=== PATIENT | female | born 1980 | race Caucasian/White ===

== ENCOUNTER 2020-07-15 07:52 | Outpatient (REF) | payer OTHER, SELFPAY ==
[2020-07-15 08:31] LABS: COVID-19 Test Negative (Negative)
== END 2020-07-15 07:53 | disposition home or self-care (01) ==
LOC: HO.EMPCOV 07:52
PROVIDERS: Visit Provider Internal Medicine
DX: Z20.822 Contact with and (suspected) exposure to COVID-19 (principal)
CPT/HCPCS: 36415; 87635; C9803

== ENCOUNTER → 2020-12-12 10:56 | Outpatient (BNVA) | payer OTHER, SELFPAY | DX: Z20.822 Contact with and (suspected) exposure to COVID-19 (principal) | CPT/HCPCS: 36415; 87635 ==

== ENCOUNTER 2021-01-28 15:07 | Emergency (ER) | payer OTHER, SELFPAY ==
[2021-01-28 15:27] VITALS: BP 119/89; PULSE 70; RESP 16; O2SAT 98; BMI 45.6
[2021-01-28] MEDS: predniSONE 20 MG TABLET 60 MG PO (16:44)
[2021-01-28] MEDS: Ketorolac Tromethamine 15 MG/ML VIAL 30 MG IM (16:45)
--- NOTE | 2021-01-28 16:45 | ED_ITS ---
HPI - General Adult General Chief complaint: Back Pain/Injury Stated complaint: lower back pain Source: patient Mode of arrival: ambulatory Limitations: no limitations History of Present Illness HPI narrative: Patient presents to the ED for lower back pain exacerbation. patient states 5 days ago she washing her hand while bending down and when she straighted up she felt pain in lower back. patient states having pain fosince for the past 5 days that is worse on movement. patient denies any urinay/bowel incontinence, fever, chills, dysuria, hematuria, flank pain, vaginal bleeding, vaginal discharge, abdominal pain, or any recent trauma. patient states this has happened before and improves with musclecle relaxers. patient she had similiar episode 2 months ago and had normal xray at [facility]. patient de nies any pmh of IV drug use, HIV or HEp C Related Data Previous Rx's Medication Instructions Recorded cyclobenzaprine 10 mg tablet 10 mg PO TID PRN #18 tab 01/28/21 ketorolac 10 mg tablet 10 mg PO Q6H PRN 5 Days #20 tab 01/28/21 prednisone 20 mg tablet 40 mg PO DAILY 5 Days #10 tab 01/28/21 Allergies Allergy/AdvReac Type Severity Reaction Status Date / Time No Known Allergies Allergy Unverified 12/14/19 16:10 [No Known Allergies*] Review of Systems Review of Systems: Yes all other systems are reviewed and are negative Constitutional: Constitutional: Reports as per HPI and Reports no additional constitutional complaints Eyes: Eyes: Reports as per HPI and Reports no additional eye complaints ENT: Reports system reviewed and no additional complaints, except as documented and Reports as per HPI Cardiovascular: Cardiovascular: Reports as per HPI and Reports no additional cardiovascular complaints Respiratory: Respiratory: Reports as per HPI and Reports no additional respiratory complaints Gastrointestinal: Gastrointestinal: Reports as per HPI and Reports no additional gastrointestinal complaints Genitourinary: Genitourinary: Reports no additional female genitourinary complaints and Reports as per HPI Musculoskeletal: Musculoskeletal: Reports no additional musculoskeletal complaints, Reports as per HPI and Reports back pain (lower back pain) Neurologic: Reports system reviewed and no additional complaints, except as documented and Reports as per HPI Psychiatric: Psychiatric: Reports no additional psychiatric complaints and Reports as per HPI [facility] Social History Social History Advance Directives: No Advance Directives Information Provided: Yes Physical Exam Vital Signs: Vital Signs: Last Vital Signs Pulse 70 01/28/21 15:27 Resp 16 01/28/21 15:27 BP 119/89 01/28/21 15:27 Pulse Ox 98 01/28/21 15:27 Body Mass Index 45.6 Const: General: cooperative, healthy appearing, comfortable, no acute distress, well developed, alert, awake and Physically active Orientation/consciousness: patient oriented x3 HENMT: Head: Yes normal to inspection, Yes No palpable skull fracture present, Yes normocephalic, Yes atraumatic and No abrasion Eyes: General: appearance normal, both eyes and all related structures Neck: Neck: Yes normal visual inspection, Yes full ROM, Yes no lymphadenopathy, Yes no meningeal signs, Yes trachea midline, Yes supple, No anterior neck swelling and No tender Chest: Chest palpation & inspection: normal inspection of the chest and normal palpation of entire chest wall Resp: Effort & Inspection: normal respiratory effort and able to speak in complete sentences Auscultation: clear to auscultation bilaterally Cardio: Jugular venous distension: no JVD Heart sounds: S1 normal heart sound present and S2 normal heart sound present GI: Inspection: Yes normal to inspection and No abdominal wall ecchymosis Palpation (GI): Soft to palpation, not firm, nontender, no guarding and not rigid : General: No CVA tenderness and Yes no CVA tenderness Back/Spine/Pelvis: Other: Pain on range of motion of back. Back: no CVA tenderness, No CVA tenderness and back tenderness (mild muscular lumbar tenderness. ) Skin: General skin exam: no rashes or lesions noted and elasticity normal Neuro: General: patient oriented x3, no meningeal signs and CN's II-XI intact bilaterally Cranial nerves: Yes CN's II-XII intact bilaterally Extrem: General: Yes normal to inspection and Yes full ROM Psych: Appearance: grossly normal, well kempt and not disheveled Course Course Course Narrative: Patient will be given pain medication. Not suspecting pyelonephritis, kidney stones, or urinary tract infection. No new imaging indicated. He denies having trauma. Patient states similar presentation the past with normal x-ray. Not suspecting any spinal fracture or cauda equinus syndrome. Not suspecting epidural abscess. Reevaluation(s) Reevaluation #1: Patient discharged with pain meds and told to follow-up with primary care provider. Patient given days off. Time: 16:52 Medical Decision Making MDM Narrative Medical decision making narrative: Back pain. Muscle spasm Discharge Plan Discharge Clinical Impression: Sciatica Patient Disposition: Home, Self-Care Instructions: Sciatica (ED), Back Pain (ED) Additional Instructions: Please follow-up with primary care provider. Recommend MRI by PCP if pain does not improve. Return to the ED immediately for any urinary/bowel incontinence, fever, chills, nausea, vomiting, dysuria, hematuria, severe back pain, inability to ambulate, or any other concerning symptoms. Prescriptions: New ketorolac 10 mg tablet 10 mg PO Q6H PRN (Reason: pain) 5 Days Qty: 20 RF: 0 prednisone 20 mg tablet 40 mg PO DAILY 5 Days Qty: 10 RF: 0 cyclobenzaprine 10 mg tablet 10 mg PO TID PRN (Reason: muscle spasm) Qty: 18 RF: 0 Stand Alone Forms: Work/School Release Interventions: ED Discharge Assessment Last Done: 01/28/21 17:11 Discharge Date/Time: 01/28/21 17:12 Print Language: Greek
== END 2021-01-28 17:12 | disposition home or self-care (01) ==
PROVIDERS: Emergency Provider Emergency Medicine
DX: M54.42 Lumbago with sciatica, left side (principal); M54.41 Lumbago with sciatica, right side; Z79.899 Other long term (current) drug therapy
CPT/HCPCS: 96372; 99284; J1885

== ENCOUNTER 2021-11-24 17:37 | Emergency (ER) | payer OTHER, SELFPAY ==
--- NOTE | ~2021-11-24 | XR_ITS ---
EXAMINATION: PORTABLE CHEST 1 VIEW CLINICAL INFORMATION: sob . COMPARISON: 07/14/2018. TECHNIQUE: Portable frontal view of the chest was obtained. FINDINGS: The lungs are well expanded. No focal infiltrate, effusion, edema, or pneumothorax. Cardiac and mediastinal silhouettes are within normal limits for technique. No acute bony abnormality seen. XR/XR chest 1V IMPRESSION: No evidence of acute disease.
[2021-11-24 17:40] VITALS: BP 121/72; BP 131/72; PULSE 72; PULSE 78; RESP 20; TEMP 36.7; O2SAT 96; O2SAT 99; BMI 43.2
--- NOTE | 2021-11-24 17:43 | ED_ITS ---
HPI - SOB/Dyspnea General Chief Complaint: Dyspnea Stated Complaint: dyspnea Time Seen by Provider: 11/24/21 17:43 Source: patient Mode of arrival: EMS Limitations: no limitations History of Present Illness HPI Narrative: Patient OBs smoker brought by EMS for increased shortness of breath since early today use 4 puffs at home EMS gave her DuoNeb treatment. Patient clean her house with bleach earlier today and after that noticed increased shortness of breath patient does not have a diagnosis of asthma as such and been feeling sick for last 10 years off and on does have a dog at home no cats family history of asthma + no chest pain no palpitation no leg swelling patient denies any diagnosis of sleep apnea does not fall sick during daytime no apneic spell Related Data Previous Rx's Medication Instructions Recorded cyclobenzaprine 10 mg tablet 10 mg PO TID PRN muscle spasm #18 01/28/21 tabs ketorolac 10 mg tablet 10 mg PO Q6H PRN pain 5 days #20 01/28/21 tabs prednisone 20 mg tablet 40 mg PO DAILY 5 days #10 tabs 01/28/21 albuterol sulfate 2.5 mg/3 mL 2.5 mg (3 mL) inhalation Q4-6H PRN 11/24/21 (0.083 %) solution for nebulization shortness of breath or wheezing #180 mL albuterol sulfate 90 mcg/actuation 2 puff inhalation Q4-6H PRN 11/24/21 aerosol inhaler (ProAir HFA) shortness of breath or wheezing #8.5 grams nebulizers #1 ea 11/24/21 prednisone 20 mg tablet 40 mg PO DAILY #10 tabs 11/24/21 Allergies Allergy/AdvReac Type Severity Reaction Status Date / Time No Known Allergies Allergy Unverified 12/14/19 16:10 [No Known Allergies*] Review of Systems Review of Systems: Yes all other systems are reviewed and are negative PMFSH Past Medical History Medical History (Updated 11/25/21 @ 00:02 by Zoya Keene) Asthma Social History Social History Patient Tobacco Use Status: Current everyday Tobacco user Use of substances other than those prescribed or required for medical reasons: No Advance Directives: No Advance Directives Information Provided: No Patient : No Physical Exam Vital Signs: Vital Signs: Last Vital Signs Temp 98.7 F 11/24/21 18:26 Pulse 80 11/24/21 19:55 Resp 20 11/24/21 19:55 BP 102/53 L 11/24/21 19:55 Pulse Ox 98 11/24/21 19:55 O2 Del Method 11/24/21 19:55 BMI result Body Mass Index 43.2 Appearance: Alert. Oriented X3. Mild respiratory distress obese Eyes: No pallor or icterus ENT: Pharynx normal. Oral Mucosa moist Neck: Normal inspection. Neck supple. CVS: Normal heart rate and rhythm. Pulses normal. Respiratory: No respiratory distress. Equal air entry bilateral, no wheezing/rales/rhonchi Abdomen: Soft and nontender. Bowel sounds are present, no mass palpable, no CVA tenderness Skin: Skin warm and dry. Normal skin color. Normal skin turgor. Extremities: No lower extremity edema. No calf tenderness Neuro: Oriented X 3. No motor deficit. No sensory deficit.No cerebellar signs , cranial nerves II-XII intact MDM - SOB/Dyspnea MDM Narrative Medical decision making narrative: Patient improved after nebulizing treatment IV steroids and magnesium will discharge patient home on prednisone advised to avoid chemicals and use nebulizing machine Differential Diagnosis Differential diagnosis: Likely asthma with exacerbation Lab Data Attestation: I reviewed the patient's lab results. Result diagrams: 11/24/21 18:54 11/24/21 18:54 Labs: Lab Results 11/24/21 11/24/21 11/24/21 Range/Units 18:54 18:54 18:54 WBC 8.1 (4.8-10.8) X10*3/uL RBC 4.77 (4.20-5.50) X10*6/uL Hgb 14.5 (12.0-16.0) g/dl Hct 43.5 (37.0-47.0) % MCV 91.2 (80.0-98.0) fL MCH 30.4 (27.0-33.0) pg MCHC 33.3 (31.0-35.0) g/dl RDW 12.9 (11.0-16.0) % Plt Count 268 (160-400) X10*3/uL MPV 10.7 (9.4-12.3) fL Immature Gran % (Auto) 0.4 (0.0-0.4) % Neut % (Auto) 80.6 H (45-73) % Lymph % (Auto) 15.0 L (20-40) % [place] % (Auto) 2.8 (2-11) % Eos % (Auto) 1.0 (0-4) % Baso % (Auto) 0.2 (0-2) % Lymph # (Auto) 1.2 (1.2-4.9) X10*3/uL [place] # (Auto) 0.2 (0.1-1.2) X10*3/uL Eos # (Auto) 0.1 (0.0-0.4) X10*3/uL Baso # (Auto) 0.0 (0.0-0.2) X10*3/uL Abs Immat Gran (auto) 0.03 (0.00-0.03) X10*3/uL Absolute Neuts (auto) 6.5 (2.0-8.3) x10*3/uL Absolute Nucleated RBC 0.000 (0.0-0.012) X10*3/uL Nucleated RBC % (auto) 0.0 (0.0-0.2) /100WBC Sodium 142 (135-145) mmol/L Potassium 4.2 (3.3-5.1) mmol/L Chloride 108 (96-108) mmol/L Carbon Dioxide 25 (22-29) mmol/L Anion Gap 13 (12-20) BUN 11 (9-16) mg/dL Creatinine 0.78 (0.5-1.4) mg/dL Estim Creat Clear Calc 124.4 Estimated GFR > 60 Random Glucose 149 H (60-115) mg/dL Calcium 8.7 (8.4-10.2) mg/dL Total Bilirubin 0.6 (0.0-1.0) mg/dL AST 17 (5-31) U/L ALT 19 (0-31) U/L Alkaline Phosphatase 104 (39-117) U/L Troponin I High Sens (<3.5-17.0) ng/L B-Natriuretic Peptide (<100) pg/mL Total Protein 6.9 (6.5-8.0) g/dL Albumin 3.9 (3.5-5.0) g/dL COVID-19 ([place]ITISH) Negative (Negative) COVID-19 Clin Com See Note 11/24/21 11/24/21 Range/Units 18:54 18:54 WBC (4.8-10.8) X10*3/uL RBC (4.20-5.50) X10*6/uL Hgb (12.0-16.0) g/dl Hct (37.0-47.0) % MCV (80.0-98.0) fL MCH (27.0-33.0) pg MCHC (31.0-35.0) g/dl RDW (11.0-16.0) % Plt Count (160-400) X10*3/uL MPV (9.4-12.3) fL Immature Gran % (Auto) (0.0-0.4) % Neut % (Auto) (45-73) % Lymph % (Auto) (20-40) % [place] % (Auto) (2-11) % Eos % (Auto) (0-4) % Baso % (Auto) (0-2) % Lymph # (Auto) (1.2-4.9) X10*3/uL [place] # (Auto) (0.1-1.2) X10*3/uL Eos # (Auto) (0.0-0.4) X10*3/uL Baso # (Auto) (0.0-0.2) X10*3/uL Abs Immat Gran (auto) (0.00-0.03) X10*3/uL Absolute Neuts (auto) (2.0-8.3) x10*3/uL Absolute Nucleated RBC (0.0-0.012) X10*3/uL Nucleated RBC % (auto) (0.0-0.2) /100WBC Sodium (135-145) mmol/L Potassium (3.3-5.1) mmol/L Chloride (96-108) mmol/L Carbon Dioxide (22-29) mmol/L Anion Gap (12-20) BUN (9-16) mg/dL Creatinine (0.5-1.4) mg/dL Estim Creat Clear Calc Estimated GFR Random Glucose (60-115) mg/dL Calcium (8.4-10.2) mg/dL Total Bilirubin (0.0-1.0) mg/dL AST (5-31) U/L ALT (0-31) U/L Alkaline Phosphatase (39-117) U/L Troponin I High Sens 5.3 (<3.5-17.0) ng/L B-Natriuretic Peptide 27 (<100) pg/mL Total Protein (6.5-8.0) g/dL Albumin (3.5-5.0) g/dL COVID-19 ([place]ITISH) (Negative) COVID-19 Clin Com Discharge Plan Discharge Clinical Impression: Asthma with exacerbation Patient Disposition: Home, Self-Care Instructions: Asthma (ED) Additional Instructions: Use nebulizing treatment every 4-6 hours as advised Prednisone as prescribed Follow-up with PCP Prescriptions: New prednisone 20 mg tablet 40 mg PO DAILY Qty: 10 0RF albuterol sulfate [ProAir HFA] 90 mcg/actuation HFA aerosol inhaler 2 puff inhalation Q4-6H PRN (Reason: shortness of breath or wheezing) Qty: 8.5 0RF albuterol sulfate 2.5 mg /3 mL (0.083 %) solution for nebulization 2.5 mg inhalation Q4-6H PRN (Reason: shortness of breath or wheezing) Qty: 180 0RF (DME) nebulizers Misc See Rx Instructions .Route Qty: 1 0RF Rx Instructions: As directed No Action ketorolac 10 mg tablet 10 mg PO Q6H PRN (Reason: pain) 5 Days Qty: 20 0RF Rx Instructions: patient received IM toradol 30mg in the ED. prednisone 20 mg tablet 40 mg PO DAILY 5 Days Qty: 10 0RF cyclobenzaprine 10 mg tablet 10 mg PO TID PRN (Reason: muscle spasm) Qty: 18 0RF Rx Instructions: side effect is drowsiness. Do not take at work or while driving. Referrals: Osiris Vasquez MD [Physician] - 2 weeks Interventions: ED Discharge Assessment Last Done: 11/24/21 20:40 Discharge Date/Time: 11/24/21 20:41
--- NOTE | 2021-11-24 17:46 | ECG_ITS ---
Test Reason : DYSPENA Blood Pressure : / mmHG Vent. Rate : 080 BPM Atrial Rate : 080 BPM P-R Int : 128 ms QRS Dur : 090 ms QT Int : 388 ms P-R-T Axes : 008 -14 023 degrees QTc Int : 447 ms Normal sinus rhythm Normal ECG When compared with ECG of 14-JUL-2018 16:18, Heart rate has decreased Referred By: Carlo Corona Electronically Signed By:LORI ISSA
[2021-11-24 17:47] VITALS: BP 131/72; PULSE 77; RESP 14; O2SAT 99
[2021-11-24] MEDS: Magnesium Sulfate/H2O 2 GM/50 ML PIGGYBACK IV (18:15)
[2021-11-24] MEDS: methylPREDNISolone Sod Succ 125 MG/2 ML VIAL IVPUSH (18:15)
[2021-11-24 18:26] VITALS: BP 119/69; PULSE 72; RESP 16; TEMP 37.1; O2SAT 98
[2021-11-24 19:01] LABS: MANUAL DIFF FLAG NO
[2021-11-24 19:02] LABS: Basophils Percent Auto 0.2 % (0-2); Eosinophils Absolute Auto 0.1 X10*3/uL (0.0-0.4); Hematocrit 43.5 % (37.0-47.0); Hemoglobin 14.5 g/dl (12.0-16.0); Imm Gran Abs Auto 0.03 X10*3/uL (0.00-0.03); Imm Gran Pct Auto 0.4 % (0.0-0.4); Lymphocytes Absolute Auto 1.2 X10*3/uL (1.2-4.9); Mean Corpuscular HGB Conc 33.3 g/dl (31.0-35.0); Mean Corpuscular Hemoglobin 30.4 pg (27.0-33.0); Mean Corpuscular Volume 91.2 fL (80.0-98.0); Mean Platelet Volume 10.7 fL (9.4-12.3); Monocytes Absolute Auto 0.2 X10*3/uL (0.1-1.2); Monocytes Percent Auto 2.8 % (2-11); Neutrophils Absolute Auto 6.5 x10*3/uL (2.0-8.3); Neutrophils Percent Auto 80.6 % (45-73); Platelet Count 268 X10*3/uL (160-400); Red Blood Count 4.77 X10*6/uL (4.20-5.50); Red Cell Distribution Width 12.9 % (11.0-16.0); White Blood Count 8.1 X10*3/uL (4.8-10.8)
[2021-11-24 19:18] LABS: Alanine Aminotransferase 19 U/L (0-31); Albumin Level 3.9 g/dL (3.5-5.0); Alkaline Phosphatase 104 U/L (39-117); Anion Gap 13 (12-20); Aspartate Amino Transferase 17 U/L (5-31); Bilirubin Total 0.6 mg/dL (0.0-1.0); Blood Urea Nitrogen 11 mg/dL (9-16); COVID-19 Test Negative (Negative); Calcium 8.7 mg/dL (8.4-10.2); Carbon Dioxide 25 mmol/L (22-29); Chloride 108 mmol/L (96-108); Creatinine Clr Calc Pharmacy 124.4; Estimated Glomerular Filt Rate > 60; Glucose Random 149 mg/dL (60-115); IDNOW Serial# 16C4AD1C; Potassium 4.2 mmol/L (3.3-5.1); Sodium 142 mmol/L (135-145); Total Protein 6.9 g/dL (6.5-8.0)
[2021-11-24 19:21] LABS: B Type Natriuretic Peptide 27 pg/mL (<100)
[2021-11-24 19:22] LABS: Troponin-I High Sensitivity 5.3 ng/L (<3.5-17.0)
[2021-11-24] MEDS: Albuterol Sulfate (0.083%) 2.5 MG/3 ML VIAL.NEB 5 MG INHALE (19:25)
[2021-11-24 19:26] VITALS: PULSE 74; RESP 16; O2SAT 96
[2021-11-24 19:55] VITALS: BP 102/53; PULSE 80; RESP 20; O2SAT 98
== END 2021-11-24 20:41 | disposition home or self-care (01) ==
PROVIDERS: Emergency Provider Internal Medicine
DX: J45.901 Unspecified asthma with (acute) exacerbation (principal); Z20.822 Contact with and (suspected) exposure to COVID-19; R06.02 Shortness of breath; F17.200 Nicotine dependence, unspecified, uncomplicated
CPT/HCPCS: 36415; 71045; 80053; 83880; 84484; 85025; 87635; 93005; 94640; 96365; 96375; 99284; 99285; J2930; J3475

== ENCOUNTER 2022-03-02 11:18 | Emergency (ER) | payer OTHER, SELFPAY ==
[2022-03-02 11:22] VITALS: BP 147/83; PULSE 78; RESP 20; TEMP 36.7; O2SAT 96; BMI 43.2
--- NOTE | 2022-03-02 11:24 | ED.URI ---
HPI - URI/Sore Throat General Chief Complaint: General Medical Stated Complaint: asthma Source: patient Mode of arrival: ambulatory History of Present Illness HPI Narrative: 42-year-old female with history of asthma presents with positive COVID-19 test home and presents with persistent cough as well as fevers, body aches. Related Data Previous Rx's Medication Instructions Recorded cyclobenzaprine 10 mg tablet 10 mg PO TID PRN muscle spasm #18 01/28/21 tabs ketorolac 10 mg tablet 10 mg PO Q6H PRN pain 5 days #20 01/28/21 tabs prednisone 20 mg tablet 40 mg PO DAILY 5 days #10 tabs 01/28/21 albuterol sulfate 2.5 mg/3 mL 2.5 mg (3 mL) inhalation Q4-6H PRN 11/24/21 (0.083 %) solution for nebulization shortness of breath or wheezing #180 mL albuterol sulfate 90 mcg/actuation 2 puff inhalation Q4-6H PRN 11/24/21 aerosol inhaler (ProAir HFA) shortness of breath or wheezing #8.5 grams nebulizers #1 ea 11/24/21 prednisone 20 mg tablet 40 mg PO DAILY #10 tabs 11/24/21 benzonatate 200 mg capsule 200 mg PO TID PRN cough #14 caps 03/02/22 prednisone 50 mg tablet 50 mg PO DAILY 4 days #4 tabs 03/02/22 Allergies Allergy/AdvReac Type Severity Reaction Status Date / Time No Known Allergies Allergy Verified 03/02/22 11:27 [No Known Allergies*] Review of Systems Review of Systems: Pertinent positives and negatives as stated in HPI 10 point review of systems is otherwise negative. PMFSH Past Medical History Medical History (Updated 03/02/22 @ 11:36 by Sharyn Olmos MD) Asthma Social History Social History Patient Tobacco Use Status: Current everyday Tobacco user Physical Exam Vital Signs: Vital Signs: VITAL SIGNS: Reviewed. GENERAL: Well developed, well nourished, in no acute distress. HEAD: Normocephalic/atraumatic EYES: PERRLA, EOMI EARS: Ext canals without abnormality NOSE: Nares patent bilateral OROPHARYNX: no oral lesions noted, posterior pharynx clear and non-erythematous without noted tonsillar enlargement/erythema/exudates NECK: Supple, no adenopathy LUNGS: Normal breath sounds, scattered rhonchi but no wheeze/rales, mild tachypnea. SpO2<95> CARDIOVASCULAR: Regular rate and rhythm without noted murmurs ABDOMEN: Soft, non-tender, non-distended with bowel sounds. MUSCULOSKELETAL: No tenderness, deformities, or effusions noted on gross inspection. EXTREMITIES: No cyanosis, clubbing or edema. SKIN: Inspection of the skin reveals no rashes NEUROLOGIC: Alert and oriented x 4. Strength and sensation to light touch were grossly intact x 4. Course Course Course Narrative: 42-year-old female with history and clinical presentation consistent with viral syndrome and COVID-19 positivity, given patient's asthma she will be given Ventolin/50 mg of prednisone, the swabbed for COVID-19 and influenza (she is in a pleated has patient portal will check for her results) and otherwise be placed on 5 day isolation as per CDC protocol. Discharge Plan Discharge Clinical Impression: Viral syndrome, Asthma, Lab test positive for detection of COVID-19 virus Patient Disposition: Home, Self-Care Instructions: Asthma (ED), Viral Syndrome (ED), COVID-19 (Coronavirus Disease 2019) (ED) Additional Instructions: 1. Resume all home medications as prescribed. Complete the course of prednisone as prescribed. 2. You must isolate as per all CDC guidelines. Five days at this time. 3. Recommend [id number] Tylenol/ibuprofen as needed for body aches, headaches, temperatures greater than 100.4. Return to the ER for worsening symptoms. Prescriptions: New prednisone 50 mg tablet 50 mg PO DAILY 4 Days Qty: 4 0RF benzonatate 200 mg capsule 200 mg PO TID PRN (Reason: cough) Qty: 14 0RF No Action ketorolac 10 mg tablet 10 mg PO Q6H PRN (Reason: pain) 5 Days Qty: 20 0RF Rx Instructions: patient received IM toradol 30mg in the ED. prednisone 20 mg tablet 40 mg PO DAILY 5 Days Qty: 10 0RF cyclobenzaprine 10 mg tablet 10 mg PO TID PRN (Reason: muscle spasm) Qty: 18 0RF Rx Instructions: side effect is drowsiness. Do not take at work or while driving. prednisone 20 mg tablet 40 mg PO DAILY Qty: 10 0RF albuterol sulfate [ProAir HFA] 90 mcg/actuation HFA aerosol inhaler 2 puff inhalation Q4-6H PRN (Reason: shortness of breath or wheezing) Qty: 8.5 0RF albuterol sulfate 2.5 mg /3 mL (0.083 %) solution for nebulization 2.5 mg inhalation Q4-6H PRN (Reason: shortness of breath or wheezing) Qty: 180 0RF (DME) nebulizers Misc See Rx Instructions .Route Qty: 1 0RF Rx Instructions: As directed
[2022-03-02] MEDS: predniSONE 10 MG TABLET 50 MG PO (11:31)
[2022-03-02] MEDS: Albuterol Sulfate 90 MCG 8 GM INHALER 4 PUFF INHALE (11:32)
[2022-03-02] MEDS: Benzonatate 100 MG CAPSULE 200 MG PO (11:32)
[2022-03-02 12:03] LABS: COVID-19 Test Positive (Negative); IDNOW Serial# 16C4AD1C
[2022-03-02 12:04] LABS: IDNOW Serial# BCCEAD1C; Influenza A Negative (Negative); Influenza B2 Negative (Negative)
== END 2022-03-02 11:57 | disposition home or self-care (01) ==
LOC: HO.ED 11:55
PROVIDERS: Emergency Provider Student in an Organized Health Care Education/Training Program
DX: U07.1 COVID-19 (principal); J45.909 Unspecified asthma, uncomplicated; B34.9 Viral infection, unspecified
CPT/HCPCS: 87502; 87635; 99282; 99284

== ENCOUNTER 2022-09-05 15:58 | Emergency (ER) | payer OTHER, MEDICAID, SELFPAY ==
--- NOTE | ~2022-09-05 | XR_ITS ---
EXAMINATION: XR CHEST CLINICAL INFORMATION: Chest pain COMPARISON: Chest x-rays of 11/24/2021, 07/14/2018, 12/09/2015 TECHNIQUE: 2 views of the chest were obtained. FINDINGS: Borderline normal cardiac size versus mild cardiomegaly. No abnormal tracheal deviation. Lungs are symmetrically expanded. No focal consolidation, changes of congestion, pleural effusions or pneumothorax are seen. Regional skeleton is intact. XR/XR chest 2V IMPRESSION: No acute pulmonary process.
--- NOTE | 2022-09-05 16:01 | ECG_ITS ---
Test Reason : CHEST PAIN Blood Pressure : / mmHG Vent. Rate : 071 BPM Atrial Rate : 071 BPM P-R Int : 112 ms QRS Dur : 084 ms QT Int : 400 ms P-R-T Axes : -15 -13 047 degrees QTc Int : 434 ms Normal sinus rhythm Low voltage QRS Borderline ECG When compared with ECG of 24-NOV-2021 18:36, No significant change was found Referred By: Generic ED Physician Electronically Signed By:Benny Hamm
[2022-09-05 16:07] VITALS: BP 111/75; PULSE 72; RESP 13; TEMP 36.8; O2SAT 96
[2022-09-05 16:10] VITALS: BP 111/75; BP 113/66; PULSE 67; PULSE 74; RESP 12; TEMP 36.4; O2SAT 94; O2SAT 96; BMI 44.9
[2022-09-05 16:18] VITALS: PULSE 73
--- NOTE | 2022-09-05 16:19 | PC.NURSE ---
Pt presents to ED via EMS complaining of chest pain. Pt reports that she has been having a lot of stress at home. Today, her sons started fighting, throwing things, and breaking items. Pt reported a sharp chest pain that radiates down the left arm with numbness. EMS gave 4 baby aspirin with some relief, pain 7/10 upon arrival. Pt denies SOB, NVD, weakness. Labs were drawn, EKG is done. Pt waiting ED provider at this time.
[2022-09-05 16:27] LABS: MANUAL DIFF FLAG NO
[2022-09-05 16:28] LABS: Basophils Percent Auto 0.2 % (0-2); Eosinophils Absolute Auto 0.1 X10*3/uL (0.0-0.4); Eosinophils Percent Auto 1.1 % (0-4); Hematocrit 46.8 % (37.0-47.0); Hemoglobin 15.3 g/dl (12.0-16.0); Imm Gran Abs Auto 0.03 X10*3/uL (0.00-0.03); Imm Gran Pct Auto 0.3 % (0.0-0.4); Lymphocytes Absolute Auto 1.9 X10*3/uL (1.2-4.9); Lymphocytes Percent Auto 20.2 % (20-40); Mean Corpuscular HGB Conc 32.7 g/dl (31.0-35.0); Mean Corpuscular Hemoglobin 29.9 pg (27.0-33.0); Mean Corpuscular Volume 91.4 fL (80.0-98.0); Mean Platelet Volume 10.7 fL (9.4-12.3); Monocytes Absolute Auto 0.7 X10*3/uL (0.1-1.2); Monocytes Percent Auto 7.4 % (2-11); Neutrophils Absolute Auto 6.7 x10*3/uL (2.0-8.3); Neutrophils Percent Auto 70.8 % (45-73); Platelet Count 300 X10*3/uL (160-400); Red Blood Count 5.12 X10*6/uL (4.20-5.50); Red Cell Distribution Width 13.1 % (11.0-16.0); White Blood Count 9.5 X10*3/uL (4.8-10.8)
[2022-09-05 16:42] LABS: Anion Gap 13 (12-20); Blood Urea Nitrogen 13 mg/dL (9-16); Carbon Dioxide 22 mmol/L (22-29); Chloride 109 mmol/L (96-108); Creatinine Clr Calc Pharmacy 115.5; Estimated Glomerular Filt Rate > 60; Glucose Random 113 mg/dL (60-115); Potassium 4.7 mmol/L (3.3-5.1); Sodium 139 mmol/L (135-145)
[2022-09-05 16:47] LABS: Troponin-I High Sensitivity 3.1 ng/L (<3.5-17.0)
[2022-09-05 17:28] LABS: Alanine Aminotransferase 19 U/L (0-31); Albumin Level 3.7 g/dL (3.5-5.0); Alkaline Phosphatase 94 U/L (39-117); Bilirubin Total 0.7 mg/dL (0.0-1.0); Lipase 24 U/L (8-78); Total Protein 6.9 g/dL (6.5-8.0)
[2022-09-05 17:29] LABS: Aspartate Amino Transferase 20 U/L (5-31); Bilirubin Direct 0.2 mg/dL (0.0-0.5)
[2022-09-05] MEDS: LORazepam 1 MG TABLET PO (17:42)
[2022-09-05] MEDS: Ibuprofen 600 MG TABLET PO (17:42)
--- NOTE | 2022-09-05 17:42 | ED.CHESTPAIN ---
HPI - Chest Pain General Chief Complaint: Chest Pain Stated Complaint: CP Time Seen by Provider: 09/05/22 16:31 Source: patient and EMS Mode of arrival: EMS Limitations: no limitations History of Present Illness HPI narrative: 42-year-old female with history of hypothyroidism asthma presents to the ER with complaints of left-sided chest pain with radiation down the left arm with left arm tingling since 15:00 today. Pain is described as tightness, not exertional, not pleuritic. Patient reports the symptoms began after having an argument at home with her children. Patient denies any associated shortness of breath, vomiting, diaphoresis, dizziness, palpitations. No leg swelling or neck pain. No recent travel, no recent surgeries. No CP use. No family history of DVT or PE. Patient received 324 mg of aspirin prior to arrival. Patient does smoke cigarettes Related Data Previous Rx's Medication Instructions Recorded cyclobenzaprine 10 mg tablet 10 mg PO TID PRN muscle spasm #18 01/28/21 tabs ketorolac 10 mg tablet 10 mg PO Q6H PRN pain 5 days #20 01/28/21 tabs prednisone 20 mg tablet 40 mg PO DAILY 5 days #10 tabs 01/28/21 albuterol sulfate 2.5 mg/3 mL 2.5 mg (3 mL) inhalation Q4-6H PRN 11/24/21 (0.083 %) solution for nebulization shortness of breath or wheezing #180 mL albuterol sulfate 90 mcg/actuation 2 puff inhalation Q4-6H PRN 11/24/21 aerosol inhaler (ProAir HFA) shortness of breath or wheezing #8.5 grams nebulizers #1 ea 11/24/21 prednisone 20 mg tablet 40 mg PO DAILY #10 tabs 11/24/21 benzonatate 200 mg capsule 200 mg PO TID PRN cough #14 caps 03/02/22 prednisone 50 mg tablet 50 mg PO DAILY 4 days #4 tabs 03/02/22 Allergies Allergy/AdvReac Type Severity Reaction Status Date / Time No Known Allergies Allergy Verified 03/02/22 11:27 [No Known Allergies*] Review of Systems Review of Systems: Yes all other systems are reviewed and are negative Constitutional: Constitutional: Reports no additional constitutional complaints, Denies body ache(s), Denies chills, Denies fever(s), Denies headache(s) and Denies weakness Eyes: Eyes: Reports no additional eye complaints and Denies change in vision ENT: Reports system reviewed and no additional complaints, except as documented, Denies dizziness, Denies headache(s), Denies nasal congestion, Denies nasal discharge and Denies neck pain Cardiovascular: Cardiovascular: Reports no additional cardiovascular complaints, Reports chest pain, Denies leg edema and Denies dyspnea Respiratory: Respiratory: Reports no additional respiratory complaints, Denies cough and Denies dyspnea Gastrointestinal: Gastrointestinal: Reports no additional gastrointestinal complaints, Denies abdominal pain, Denies diarrhea, Denies nausea and Denies vomiting Genitourinary: Genitourinary: Reports no additional female genitourinary complaints and Denies urinary incontinence Musculoskeletal: Musculoskeletal: Reports no additional musculoskeletal complaints, Denies back pain, Denies arthralgias, Denies joint swelling, Denies neck pain, Denies numbness, Reports radiating pain into limb and Denies tingling Integumentary/Breasts: Skin/Breast: Reports system reviewed and no additional complaints, except as docu and Denies rash Neurologic: Reports system reviewed and no additional complaints, except as documented, Denies Abnormal speech present, Denies dizziness, Denies headache(s), Denies numbness, Denies tingling and Denies weakness Psychiatric: Psychiatric: Reports anxiety PMFSH Past Medical History Attestation statement: The following information was validated with the patient. Source: old records reviewed and nursing notes reviewed Medical History Asthma Social History Social History Alcohol intake: current Alcohol intake frequency: a few times a month Patient Tobacco Use Status: Current everyday Tobacco user Smoked in Last 30 Days: Yes Use of substances other than those prescribed or required for medical reasons: No Advance Directives: No Advance Directives Information Provided: Yes Patient : No Physical Exam Vital Signs: Vital Signs: Last Vital Signs Temp 98.7 F 09/05/22 20:42 Pulse 76 09/05/22 20:42 Resp 18 09/05/22 20:42 BP 127/78 09/05/22 20:42 Pulse Ox 94 09/05/22 20:42 O2 Del Method Room Air 09/05/22 20:42 BMI result Body Mass Index 44.9 Const: Other: +tearful, she is crying in the room General: alert Orientation/consciousness: patient oriented x3 Limitations: no limitations HEENT: Head: Yes normal to inspection Ears: hearing grossly normal bilaterally General nose exam: Normal external nose present Face and sinus: Yes normal facial exam Mouth: Normal oral and palatal mucosa present Throat: Yes posterior oropharynx normal Eyes: General: appearance normal, both eyes and all related structures Pupils: Equal, round and reactive pupils present Neck: Neck: Yes normal visual inspection Chest: Chest palpation & inspection: normal inspection of the chest Resp: Effort & Inspection: normal respiratory effort Auscultation: clear to auscultation bilaterally Cardio: Rate: regular rate Rhythm: regular rhythm Peripheral pulses: Peripheral pulses 2+ throughout GI: Inspection: Yes normal to inspection Palpation (GI): Soft to palpation and nontender Auscultation: normal bowel sounds Back/Spine/Pelvis: Thoracic/Lumbar Spine: thoracic and lumbar spine normal to inspection Skin: General skin exam: no rashes or lesions noted Neuro: General: patient oriented x3, no focal motor deficits and normal sensation to monofilament Cranial nerves: Yes Equal, round and reactive pupils present Cognition (Neuro): normal cognition Speech: No Abnormal speech present Gait exam (Neuro): Normal gait present Motor exam (neuro): 5/5 motor strength present throughout Extrem: General: Yes normal to inspection, Yes no pedal edema and Yes no calf tenderness Course Course Course Narrative: Labs including troponin x2 are negative. Patient reports improvement of symptoms with receiving and said some lorazepam while she is here in the emergency room. Plan for discharge home with recommendation to follow-up with her primary care doctor outpatient. Reviewed worrisome signs and symptoms of when to return to the emergency room. Comfortable plan for discharge home. Medications Administered Discontinued Medications Generic Name Dose Route Start Last Admin Trade Name Freq PRN Reason Stop Dose Admin Ibuprofen 600 mg 09/05/22 17:28 09/05/22 17:42 Ibuprofen 600 Mg Tablet PO 09/05/22 17:29 600 mg ONCE ONE Administration Lorazepam 1 mg 09/05/22 17:28 09/05/22 17:42 Lorazepam 1 Mg Tablet PO 09/05/22 17:29 1 mg ONCE ONE Administration Medical Decision Making Medical Decision Making [facility] Narrative: 42-year-old female here with complaints of left-sided chest tightness with radiation down the left arm with tingling since 15:00 today which began after an argument with family. Received aspirin prior to arrival On my assessment patient is alert, crying, tearful Exam otherwise is benign Will check labs, EKG, chest x-ray Will give NSAID, lorazepam Differential Diagnosis Differential Diagnoses: The differential diagnosis associated with the presentation includes Low concern for ACS-negtive troponin x 2, normal ekg, heart score 1 for obesity Perc is 0-low concern for PE Low concern for aortic dissection-gradual onset anxiety Lab Data [facility] Lab Attestation statement: I reviewed the patient's lab results. 09/05/22 16:22 09/05/22 16:22 Labs: Lab Results 09/05/22 09/05/22 09/05/22 Range/Units 16:22 16:22 16:22 WBC 9.5 (4.8-10.8) X10*3/uL RBC 5.12 (4.20-5.50) X10*6/uL Hgb 15.3 (12.0-16.0) g/dl Hct 46.8 (37.0-47.0) % MCV 91.4 (80.0-98.0) fL MCH 29.9 (27.0-33.0) pg MCHC 32.7 (31.0-35.0) g/dl RDW 13.1 (11.0-16.0) % Plt Count 300 (160-400) X10*3/uL MPV 10.7 (9.4-12.3) fL Immature Gran % (Auto) 0.3 (0.0-0.4) % Neut % (Auto) 70.8 (45-73) % Lymph % (Auto) 20.2 (20-40) % [place] % (Auto) 7.4 (2-11) % Eos % (Auto) 1.1 (0-4) % Baso % (Auto) 0.2 (0-2) % Lymph # (Auto) 1.9 (1.2-4.9) X10*3/uL [place] # (Auto) 0.7 (0.1-1.2) X10*3/uL Eos # (Auto) 0.1 (0.0-0.4) X10*3/uL Baso # (Auto) 0.0 (0.0-0.2) X10*3/uL Abs Immat Gran (auto) 0.03 (0.00-0.03) X10*3/uL Absolute Neuts (auto) 6.7 (2.0-8.3) x10*3/uL Absolute Nucleated RBC 0.000 (0.0-0.012) X10*3/uL Nucleated RBC % (auto) 0.0 (0.0-0.2) /100WBC Sodium 139 (135-145) mmol/L Potassium 4.7 (3.3-5.1) mmol/L Chloride 109 H (96-108) mmol/L Carbon Dioxide 22 (22-29) mmol/L Anion Gap 13 (12-20) BUN 13 (9-16) mg/dL Creatinine 0.85 (0.5-1.4) mg/dL Estim Creat Clear Calc 115.5 Estimated GFR > 60 Random Glucose 113 (60-115) mg/dL Calcium 9.0 (8.4-10.2) mg/dL Total Bilirubin 0.7 (0.0-1.0) mg/dL Direct Bilirubin 0.2 (0.0-0.5) mg/dL AST 20 (5-31) U/L ALT 19 (0-31) U/L Alkaline Phosphatase 94 (39-117) U/L Troponin I High Sens 3.1 (<3.5-17.0) ng/L Total Protein 6.9 (6.5-8.0) g/dL Albumin 3.7 (3.5-5.0) g/dL Lipase 24 (8-78) U/L 09/05/22 Range/Units 19:21 WBC (4.8-10.8) X10*3/uL RBC (4.20-5.50) X10*6/uL Hgb (12.0-16.0) g/dl Hct (37.0-47.0) % MCV (80.0-98.0) fL MCH (27.0-33.0) pg MCHC (31.0-35.0) g/dl RDW (11.0-16.0) % Plt Count (160-400) X10*3/uL MPV (9.4-12.3) fL Immature Gran % (Auto) (0.0-0.4) % Neut % (Auto) (45-73) % Lymph % (Auto) (20-40) % [place] % (Auto) (2-11) % Eos % (Auto) (0-4) % Baso % (Auto) (0-2) % Lymph # (Auto) (1.2-4.9) X10*3/uL [place] # (Auto) (0.1-1.2) X10*3/uL Eos # (Auto) (0.0-0.4) X10*3/uL Baso # (Auto) (0.0-0.2) X10*3/uL Abs Immat Gran (auto) (0.00-0.03) X10*3/uL Absolute Neuts (auto) (2.0-8.3) x10*3/uL Absolute Nucleated RBC (0.0-0.012) X10*3/uL Nucleated RBC % (auto) (0.0-0.2) /100WBC Sodium (135-145) mmol/L Potassium (3.3-5.1) mmol/L Chloride (96-108) mmol/L Carbon Dioxide (22-29) mmol/L Anion Gap (12-20) BUN (9-16) mg/dL Creatinine (0.5-1.4) mg/dL Estim Creat Clear Calc Estimated GFR Random Glucose (60-115) mg/dL Calcium (8.4-10.2) mg/dL Total Bilirubin (0.0-1.0) mg/dL Direct Bilirubin (0.0-0.5) mg/dL AST (5-31) U/L ALT (0-31) U/L Alkaline Phosphatase (39-117) U/L Troponin I High Sens 3.0 (<3.5-17.0) ng/L Total Protein (6.5-8.0) g/dL Albumin (3.5-5.0) g/dL Lipase (8-78) U/L Independent Interpretation I performed an independent interpretation of an: EKG and Plain X-Ray Interpretation: I independently reviewed the EKG which shows normal sinus rhythm with a rate of 71, normal ME, normal QRS, normal QT, normal ST segment I independently reviewed the chest x-ray and agree with radiologist's report Radiology Impression Discussion of test interpretation with radiology: I have reviewed the radiologist's reading. Radiologist Impression: Launch?Image [address] [id number] XRay Report Signed Patient: Nneka Garcia MR#: [id number] : 1980 Acct:[id number] Age/Sex: 42 / F ADM Date: 09/05/22 Loc: .ED Attending Dr: Ordering Physician: Elisha Richter NP Date of Service: 09/05/22 Procedure(s): XR chest 2V Accession Number(s): [id number] cc: Elisha Richter NP~ EXAMINATION: XR CHEST CLINICAL INFORMATION: Chest pain COMPARISON: Chest x-rays of 11/24/2021, 07/14/2018, 12/09/2015 TECHNIQUE: 2 views of the chest were obtained. FINDINGS: Borderline normal cardiac size versus mild cardiomegaly. No abnormal tracheal deviation. Lungs are symmetrically expanded. No focal consolidation, changes of congestion, pleural effusions or pneumothorax are seen. Regional skeleton is intact. XR/XR chest 2V IMPRESSION: No acute pulmonary process. Independent Historian Clinical information obtained from an independent historian. History obtained from or confirmed by: EMS Discharge Plan Discharge Clinical Impression: Chest pain Patient Disposition: Home, Self-Care Instructions: Chest Pain (DC) Additional Instructions: Your blood work, EKG and chest x-ray are reassuring. It is still important that you follow-up with her primary care doctor outpatient if you need any additional testing Please return for any worsening symptoms Prescriptions: No Action ketorolac 10 mg tablet 10 mg PO Q6H PRN (Reason: pain) 5 Days Qty: 20 0RF Rx Instructions: patient received IM toradol 30mg in the ED. prednisone 20 mg tablet 40 mg PO DAILY 5 Days Qty: 10 0RF cyclobenzaprine 10 mg tablet 10 mg PO TID PRN (Reason: muscle spasm) Qty: 18 0RF Rx Instructions: side effect is drowsiness. Do not take at work or while driving. prednisone 20 mg tablet 40 mg PO DAILY Qty: 10 0RF albuterol sulfate [ProAir HFA] 90 mcg/actuation HFA aerosol inhaler 2 puff inhalation Q4-6H PRN (Reason: shortness of breath or wheezing) Qty: 8.5 0RF albuterol sulfate 2.5 mg /3 mL (0.083 %) solution for nebulization 2.5 mg inhalation Q4-6H PRN (Reason: shortness of breath or wheezing) Qty: 180 0RF (DME) nebulizers Misc See Rx Instructions .Route Qty: 1 0RF Rx Instructions: As directed prednisone 50 mg tablet 50 mg PO DAILY 4 Days Qty: 4 0RF benzonatate 200 mg capsule 200 mg PO TID PRN (Reason: cough) Qty: 14 0RF Referrals: Physician,None [Primary Care Provider] - 1 week Interventions: ED Discharge Assessment Last Done: 09/05/22 20:46 Discharge Date/Time: 09/05/22 20:47
[2022-09-05 18:50] VITALS: BP 116/79; PULSE 72; RESP 14; O2SAT 95
[2022-09-05 20:42] VITALS: BP 127/78; PULSE 76; RESP 18; TEMP 37.1; O2SAT 94
== END 2022-09-05 20:47 | disposition home or self-care (01) ==
PROVIDERS: Nurse Practitioner Family; Emergency Provider Emergency Medicine
DX: R07.9 Chest pain, unspecified (principal); F17.210 Nicotine dependence, cigarettes, uncomplicated; Z79.899 Other long term (current) drug therapy
CPT/HCPCS: 36415; 71046; 80048; 80076; 83690; 84484; 85025; 93005; 99284; 99285

== ENCOUNTER 2022-09-23 22:14 | Emergency (ER) | payer OTHER, MEDICAID, SELFPAY ==
--- NOTE | ~2022-09-23 | XR_ITS ---
EXAMINATION: XR CHEST CLINICAL INFORMATION: SOB COMPARISON: None available. TECHNIQUE: 2 views of the chest were obtained. FINDINGS: No significant abnormality is noted involving the heart, lungs, mediastinum, bony thorax or soft tissues. XR/XR chest 2V IMPRESSION: Unremarkable chest examination.
[2022-09-23 22:15] VITALS: BP 124/79; PULSE 97; RESP 18; TEMP 36.8; O2SAT 94; BMI 47.4
[2022-09-23 22:40] LABS: MANUAL DIFF FLAG NO
[2022-09-23 22:41] LABS: Basophils Percent Auto 0.3 % (0-2); Hematocrit 51.2 % (37.0-47.0); Imm Gran Abs Auto 0.01 X10*3/uL (0.00-0.03); Imm Gran Pct Auto 0.2 % (0.0-0.4); Lymphocytes Absolute Auto 1.1 X10*3/uL (1.2-4.9); Lymphocytes Percent Auto 18.4 % (20-40); Mean Corpuscular HGB Conc 33.2 g/dl (31.0-35.0); Mean Corpuscular Hemoglobin 30.2 pg (27.0-33.0); Mean Corpuscular Volume 91.1 fL (80.0-98.0); Mean Platelet Volume 10.5 fL (9.4-12.3); Monocytes Absolute Auto 0.6 X10*3/uL (0.1-1.2); Monocytes Percent Auto 10.7 % (2-11); Neutrophils Absolute Auto 4.2 x10*3/uL (2.0-8.3); Neutrophils Percent Auto 70.4 % (45-73); Platelet Count 270 X10*3/uL (160-400); Red Blood Count 5.62 X10*6/uL (4.20-5.50)
[2022-09-23 22:55] LABS: Anion Gap 9 (12-20); Blood Urea Nitrogen 5 mg/dL (9-16); Calcium 9.3 mg/dL (8.4-10.2); Carbon Dioxide 26 mmol/L (22-29); Chloride 102 mmol/L (96-108); Creatinine Clr Calc Pharmacy 113.7; Estimated Glomerular Filt Rate > 60; Glucose Random 107 mg/dL (60-115); Potassium 4.4 mmol/L (3.3-5.1); Sodium 133 mmol/L (135-145)
[2022-09-23 23:19] LABS: Influenza A PCR NEGATIVE (Negative); Influenza B PCR NEGATIVE (Negative); Resp Syncy Virus RNA Qual PCR NEGATIVE (Negative); SARS COV2 PCR INHOUSE NEGATIVE (Negative)
--- NOTE | 2022-09-23 23:21 | ED.GENADULT ---
HPI - General Adult General Chief complaint: Fever Stated complaint: n/v/d/wened632/dizziness/body burning/ Time Seen by Provider: 09/23/22 23:01 Source: patient, RN notes reviewed and old records reviewed Mode of arrival: ambulatory Limitations: no limitations History of Present Illness HPI narrative: A 42-year-old female presents for evaluation of multiple complaints Patient states ?I got sick last night. ? Her she reports that she has a headache, burning mouth, nausea vomiting, diarrhea All her symptoms started last night She denies any cough, shortness of breath Patient states that she took her temp last night and it was ?102. ? Denies any sick contacts or recent travel Patient states that her home COVID test earlier today and it was negative No other complaints or concerns at this time Related Data Previous Rx's Medication Instructions Recorded cyclobenzaprine 10 mg tablet 10 mg PO TID PRN muscle spasm #18 01/28/21 tabs ketorolac 10 mg tablet 10 mg PO Q6H PRN pain 5 days #20 01/28/21 tabs prednisone 20 mg tablet 40 mg PO DAILY 5 days #10 tabs 01/28/21 albuterol sulfate 2.5 mg/3 mL 2.5 mg (3 mL) inhalation Q4-6H PRN 11/24/21 (0.083 %) solution for nebulization shortness of breath or wheezing #180 mL albuterol sulfate 90 mcg/actuation 2 puff inhalation Q4-6H PRN 11/24/21 aerosol inhaler (ProAir HFA) shortness of breath or wheezing #8.5 grams nebulizers #1 ea 11/24/21 prednisone 20 mg tablet 40 mg PO DAILY #10 tabs 11/24/21 benzonatate 200 mg capsule 200 mg PO TID PRN cough #14 caps 03/02/22 prednisone 50 mg tablet 50 mg PO DAILY 4 days #4 tabs 03/02/22 cefuroxime axetil 500 mg tablet 500 mg PO Q12H #10 tabs 09/24/22 Allergies Allergy/AdvReac Type Severity Reaction Status Date / Time No Known Allergies Allergy Verified 03/02/22 11:27 [No Known Allergies*] Review of Systems Constitutional: Constitutional: Reports chills, Reports fatigue, Reports fever(s), Reports headache(s), Reports lethargy and Reports malaise ENT: Reports headache(s) and Reports sinus pressure Cardiovascular: Cardiovascular: Denies chest pain and Denies dyspnea Respiratory: Respiratory: Denies cough and Denies dyspnea Gastrointestinal: Gastrointestinal: Denies abdominal pain, Reports diarrhea, Reports nausea and Reports vomiting Integumentary/Breasts: Skin/Breast: Denies rash Neurologic: Reports headache(s) Endocrine: Endocrine: Reports fatigue PMFSH Past Medical History Medical History Asthma Social History Social History Alcohol intake: never Patient Tobacco Use Status: Current everyday Tobacco user Smoked in Last 30 Days: No Use of substances other than those prescribed or required for medical reasons: No Advance Directives: No Advance Directives Information Provided: No Physical Exam ED Vital Signs: Vital Signs - 24 hr 09/23/22 22:15 09/23/22 23:30 09/24/22 00:16 Temperature 98.2 F 101.9 F H 99.9 F Pulse Rate 97 86 82 Respiratory Rate 18 16 18 Blood Pressure 124/79 118/72 110/60 Pulse Oximetry 94 98 98 Oxygen Delivery Method Room Air Room Air Room Air BMI result Body Mass Index 47.4 Const General: healthy appearing, comfortable, no acute distress, alert and awake Nutritional Appearance: well nourished Orientation/consciousness: patient oriented x3 HENMT Head: Yes normocephalic and Yes atraumatic Ears: external ears normal and TM's normal bilaterally Throat: Yes posterior oropharynx normal Eyes Eyelids: Yes eyelids normal Conjunctivae: conjunctivae normal Sclerae: sclerae normal Corneas: corneas normal Pupils: Equal, round and reactive pupils present EOM: EOMs intact bilaterally Neck Neck: Yes full ROM Resp Effort & Inspection: normal respiratory effort, able to speak in complete sentences, no audible wheezes and not labored Auscultation: clear to auscultation bilaterally GI Inspection: No distended Palpation (GI): Soft to palpation, not firm, nontender, no guarding and not rigid Skin General skin exam: no rashes or lesions noted and elasticity normal Neuro General: patient oriented x3 Cranial nerves: Yes Equal, round and reactive pupils present and Yes Bilaterally intact EOM present Cognition (Neuro): normal cognition Extrem Other: Moving all extremities well without any obvious deformities Course Reevaluation(s) Reevaluation #1: Patient's UA has 4+ bacteria. Possibly contaminant, however given the patient's fever of 101.9, will treat with Ceftin Time: 01:57 Medications Administered Discontinued Medications Generic Name Dose Route Start Last Admin Trade Name Thuanq PRN Reason Stop Dose Admin Acetaminophen 975 mg 09/23/22 23:46 09/23/22 23:51 Acetaminophen 325 Mg Tablet PO 09/23/22 23:47 975 mg ONCE ONE Administration Sodium Chloride 1,000 mls @ 999 mls/hr 09/23/22 23:30 09/24/22 00:43 Ns IV 09/24/22 00:30 Infused .Q1H1M AN Infusion Ketorolac Tromethamine 30 mg 09/23/22 23:19 09/23/22 23:31 Ketorolac Tromethamine 30 Mg/Ml Vial IVPUSH 09/23/22 23:20 30 mg ONCE ONE Administration Ondansetron HCl 4 mg 09/23/22 23:19 09/23/22 23:31 Ondansetron Hcl 4 Mg/2 Ml Vial IVPUSH 09/23/22 23:20 4 mg ONCE ONE Administration Medical Decision Making Medical Decision Making [facility] Narrative: 42-year-old female presents for evaluation of subjective fevers and chills, nausea vomiting, diarrhea, body aches, dry mouth. Denies any sick contacts. She reports headache and sinus pressure as well. She denies cough, shortness of breath. On arrival to ED the patient's vital signs are all within normal limits. She had a workup that included labs, viral panel Differential Diagnosis Differential Diagnoses: The differential diagnosis associated with the presentation includes Viral syndrome Influenza COVID-19 Pharyngitis Acute sinusitis UTI Gastroenteritis Lab Data [facility] Lab Attestation statement: I reviewed the patient's lab results. No leukocytosis. The patient is hemoconcentrated with a hemoglobin of 17.0 and hematocrit of 51.2. This is increased from her baseline her sodium is low at 133, electrolytes than normal limits, GFR is over 60. 09/23/22 22:36 09/23/22 22:36 Labs: Lab Results 09/23/22 09/23/22 09/23/22 Range/Units 22:31 22:36 22:36 WBC 6.0 (4.8-10.8) X10*3/uL RBC 5.62 H (4.20-5.50) X10*6/uL Hgb 17.0 H (12.0-16.0) g/dl Hct 51.2 H (37.0-47.0) % MCV 91.1 (80.0-98.0) fL MCH 30.2 (27.0-33.0) pg MCHC 33.2 (31.0-35.0) g/dl RDW 13.0 (11.0-16.0) % Plt Count 270 (160-400) X10*3/uL MPV 10.5 (9.4-12.3) fL Immature Gran % (Auto) 0.2 (0.0-0.4) % Neut % (Auto) 70.4 (45-73) % Lymph % (Auto) 18.4 L (20-40) % [place] % (Auto) 10.7 (2-11) % Eos % (Auto) 0.0 (0-4) % Baso % (Auto) 0.3 (0-2) % Lymph # (Auto) 1.1 L (1.2-4.9) X10*3/uL [place] # (Auto) 0.6 (0.1-1.2) X10*3/uL Eos # (Auto) 0.0 (0.0-0.4) X10*3/uL Baso # (Auto) 0.0 (0.0-0.2) X10*3/uL Abs Immat Gran (auto) 0.01 (0.00-0.03) X10*3/uL Absolute Neuts (auto) 4.2 (2.0-8.3) x10*3/uL Absolute Nucleated RBC 0.000 (0.0-0.012) X10*3/uL Nucleated RBC % (auto) 0.0 (0.0-0.2) /100WBC Sodium 133 L (135-145) mmol/L Potassium 4.4 (3.3-5.1) mmol/L Chloride 102 (96-108) mmol/L Carbon Dioxide 26 (22-29) mmol/L Anion Gap 9 L (12-20) BUN 5 L (9-16) mg/dL Creatinine 0.86 (0.5-1.4) mg/dL Estim Creat Clear Calc 113.7 Estimated GFR > 60 Random Glucose 107 (60-115) mg/dL Calcium 9.3 (8.4-10.2) mg/dL Total Bilirubin 0.6 (0.0-1.0) mg/dL Direct Bilirubin 0.2 (0.0-0.5) mg/dL AST 22 (5-31) U/L ALT 18 (0-31) U/L Alkaline Phosphatase 115 (39-117) U/L Total Protein 7.8 (6.5-8.0) g/dL Albumin 4.1 (3.5-5.0) g/dL Lipase 22 (8-78) U/L Urine Color Urine Appearance Urine pH (5.0-9.0) Ur Specific [place] (1.005-1.025) Urine Protein (Neg-Trace) mg/dL Urine Glucose (UA) (Negative) mg/dL Urine Ketones (Negative) mg/dL Urine Blood (Negative) Urine Nitrite (Negative) Ur Leukocyte Esterase (Negative) Urine RBC (0-2) /HPF Urine WBC (0-5) /HPF Ur Squamous Epith Cells (0-2) /HPF Urine Bacteria (None Seen) Hyaline Casts (0-2) /LPF Influenza Type A (PCR) NEGATIVE (Negative) Influenza Type B (PCR) NEGATIVE (Negative) RSV RNA Qual (PCR) NEGATIVE (Negative) SARS-CoV-2 RNA (RT-PCR) NEGATIVE (Negative) 09/24/22 Range/Units 01:16 WBC (4.8-10.8) X10*3/uL RBC (4.20-5.50) X10*6/uL Hgb (12.0-16.0) g/dl Hct (37.0-47.0) % MCV (80.0-98.0) fL MCH (27.0-33.0) pg MCHC (31.0-35.0) g/dl RDW (11.0-16.0) % Plt Count (160-400) X10*3/uL MPV (9.4-12.3) fL Immature Gran % (Auto) (0.0-0.4) % Neut % (Auto) (45-73) % Lymph % (Auto) (20-40) % [place] % (Auto) (2-11) % Eos % (Auto) (0-4) % Baso % (Auto) (0-2) % Lymph # (Auto) (1.2-4.9) X10*3/uL [place] # (Auto) (0.1-1.2) X10*3/uL Eos # (Auto) (0.0-0.4) X10*3/uL Baso # (Auto) (0.0-0.2) X10*3/uL Abs Immat Gran (auto) (0.00-0.03) X10*3/uL Absolute Neuts (auto) (2.0-8.3) x10*3/uL Absolute Nucleated RBC (0.0-0.012) X10*3/uL Nucleated RBC % (auto) (0.0-0.2) /100WBC Sodium (135-145) mmol/L Potassium (3.3-5.1) mmol/L Chloride (96-108) mmol/L Carbon Dioxide (22-29) mmol/L Anion Gap (12-20) BUN (9-16) mg/dL Creatinine (0.5-1.4) mg/dL Estim Creat Clear Calc Estimated GFR Random Glucose (60-115) mg/dL Calcium (8.4-10.2) mg/dL Total Bilirubin (0.0-1.0) mg/dL Direct Bilirubin (0.0-0.5) mg/dL AST (5-31) U/L ALT (0-31) U/L Alkaline Phosphatase (39-117) U/L Total Protein (6.5-8.0) g/dL Albumin (3.5-5.0) g/dL Lipase (8-78) U/L Urine Color Yellow Urine Appearance Cloudy Urine pH 5.5 (5.0-9.0) Ur Specific [place] 1.025 (1.005-1.025) Urine Protein Trace (Neg-Trace) mg/dL Urine Glucose (UA) Negative (Negative) mg/dL Urine Ketones 15 (Negative) mg/dL Urine Blood Negative (Negative) Urine Nitrite Negative (Negative) Ur Leukocyte Esterase Negative (Negative) Urine RBC 3-5 H (0-2) /HPF Urine WBC 0-5 (0-5) /HPF Ur Squamous Epith Cells 11-20 (0-2) /HPF Urine Bacteria 4+ (None Seen) Hyaline Casts 0-2 (0-2) /LPF Influenza Type A (PCR) (Negative) Influenza Type B (PCR) (Negative) RSV RNA Qual (PCR) (Negative) SARS-CoV-2 RNA (RT-PCR) (Negative) Discharge Plan Discharge Clinical Impression: Fever, UTI (urinary tract infection) Patient Disposition: Home, Self-Care Instructions: Fever in Adults (ED) Additional Instructions: Your fever is most likely related to a virus Incidentally it looks like you have a UTI Take the Ceftin twice daily for 5 days Alternate ibuprofen/Tylenol every 4 hours to treat your fever Hydrate well Return for new or worsening symptoms Prescriptions: New cefuroxime axetil 500 mg tablet 500 mg PO Q12H Qty: 10 0RF No Action ketorolac 10 mg tablet 10 mg PO Q6H PRN (Reason: pain) 5 Days Qty: 20 0RF Rx Instructions: patient received IM toradol 30mg in the ED. prednisone 20 mg tablet 40 mg PO DAILY 5 Days Qty: 10 0RF cyclobenzaprine 10 mg tablet 10 mg PO TID PRN (Reason: muscle spasm) Qty: 18 0RF Rx Instructions: side effect is drowsiness. Do not take at work or while driving. prednisone 20 mg tablet 40 mg PO DAILY Qty: 10 0RF albuterol sulfate [ProAir HFA] 90 mcg/actuation HFA aerosol inhaler 2 puff inhalation Q4-6H PRN (Reason: shortness of breath or wheezing) Qty: 8.5 0RF albuterol sulfate 2.5 mg /3 mL (0.083 %) solution for nebulization 2.5 mg inhalation Q4-6H PRN (Reason: shortness of breath or wheezing) Qty: 180 0RF (DME) nebulizers Misc See Rx Instructions .Route Qty: 1 0RF Rx Instructions: As directed prednisone 50 mg tablet 50 mg PO DAILY 4 Days Qty: 4 0RF benzonatate 200 mg capsule 200 mg PO TID PRN (Reason: cough) Qty: 14 0RF Stand Alone Forms: Work/School Release
[2022-09-23 23:30] VITALS: BP 118/72; PULSE 86; RESP 16; TEMP 38.8; O2SAT 98
[2022-09-23] MEDS: ondansetron HCL 4 MG/2 ML VIAL IVPUSH (23:31)
[2022-09-23] MEDS: 0.9 % Sodium Chloride 1,000 ML 999 ML IV (23:31)
[2022-09-23] MEDS: Ketorolac Tromethamine 30 MG/ML VIAL IVPUSH (23:31)
--- NOTE | 2022-09-23 23:33 | MHC.EDTECH ---
THIS PCT ASSUMED CARE OF PT AT 2300 ,VITALS SIGN TAKEN ,BRADFORD NUÑEZ IS AWARE OF PT HIGH FEVER .
--- NOTE | 2022-09-23 23:48 | PC.NURSE ---
pt assessed, reported generalized aching with a fever. medications given pt tolerated well
[2022-09-23] MEDS: Acetaminophen 325 MG TABLET 975 MG PO (23:51)
[2022-09-23 23:52] LABS: Alanine Aminotransferase 18 U/L (0-31); Albumin Level 4.1 g/dL (3.5-5.0); Alkaline Phosphatase 115 U/L (39-117); Aspartate Amino Transferase 22 U/L (5-31); Bilirubin Direct 0.2 mg/dL (0.0-0.5); Bilirubin Total 0.6 mg/dL (0.0-1.0); Lipase 22 U/L (8-78); Total Protein 7.8 g/dL (6.5-8.0)
[2022-09-24 00:16] VITALS: BP 110/60; PULSE 82; RESP 18; TEMP 37.7; O2SAT 98
[2022-09-24 01:25] LABS: Appearance Urine Cloudy; Color Urine Yellow; Glucose Urine UA Negative (Negative); Leukocyte Esterase Urine Negative (Negative); Nitrite Urine Negative (Negative); PH 5.5 (5.0-9.0); Specific Gravity - Urine 1.025 (1.005-1.025); Urine Blood Negative (Negative); Urine Ketones 15 mg/dL (Negative); Urine Protein Trace mg/dL (Neg-Trace)
[2022-09-24 01:30] LABS: Bacteria Urine 4+ (None Seen); Hyaline Casts Urine 0-2 /LPF (0-2); WBC Urine 0-5 /HPF (0-5)
[2022-09-24 02:06] VITALS: TEMP 36.8
--- NOTE | 2022-09-24 02:07 | PC.NURSE ---
pt assessed at d/c, denies any complaints, temp 98.3F. ambulatory gait steady
== END 2022-09-24 02:09 | disposition home or self-care (01) ==
PROVIDERS: Physician Assistant; Emergency Provider Student in an Organized Health Care Education/Training Program
DX: R50.9 Fever, unspecified (principal); N39.0 Urinary tract infection, site not specified; R11.2 Nausea with vomiting, unspecified; Z20.822 Contact with and (suspected) exposure to COVID-19; Z79.899 Other long term (current) drug therapy
CPT/HCPCS: 0241U; 71046; 80048; 80076; 81001; 83690; 85025; 96361; 96374; 96375; 99284; 99285; J1885; J2405

== ENCOUNTER 2022-10-20 22:44 | Emergency (ER) | payer OTHER, MEDICAID, SELFPAY ==
[2022-10-20 22:48] VITALS: BP 130/82; PULSE 79; RESP 18; TEMP 36; O2SAT 96; BMI 46.6
[2022-10-21] VITALS: BP 141/78; PULSE 68; RESP 17; TEMP 36.9; O2SAT 96
--- NOTE | 2022-10-21 00:27 | ED_ITS ---
HPI - Back Pain/Injury General Chief Complaint: Back Pain/Injury Stated Complaint: Lower Back pain Time Seen by Provider: 10/21/22 00:24 Source: patient, RN notes reviewed and old records reviewed Mode of arrival: ambulatory History of Present Illness HPI Narrative: 42-year-old female with a past medical history of asthma presenting to the ED complaining of acute on chronic low back pain x 4 days. Has been taking Aleve without relief. Admits to similar symptoms in the past many years ago. Denies radiation of pain, no injury/trauma or fall, numbness, tingling, weakness, urinary incontinence/retention, fever MD elicited complaint: back pain Related Data Previous Rx's Medication Instructions Recorded cyclobenzaprine 10 mg tablet 10 mg PO TID PRN muscle spasm #18 01/28/21 tabs ketorolac 10 mg tablet 10 mg PO Q6H PRN pain 5 days #20 01/28/21 tabs prednisone 20 mg tablet 40 mg PO DAILY 5 days #10 tabs 01/28/21 albuterol sulfate 2.5 mg/3 mL 2.5 mg (3 mL) inhalation Q4-6H PRN 11/24/21 (0.083 %) solution for nebulization shortness of breath or wheezing #180 mL albuterol sulfate 90 mcg/actuation 2 puff inhalation Q4-6H PRN 11/24/21 aerosol inhaler (ProAir HFA) shortness of breath or wheezing #8.5 grams nebulizers #1 ea 11/24/21 prednisone 20 mg tablet 40 mg PO DAILY #10 tabs 11/24/21 benzonatate 200 mg capsule 200 mg PO TID PRN cough #14 caps 03/02/22 prednisone 50 mg tablet 50 mg PO DAILY 4 days #4 tabs 03/02/22 cefuroxime axetil 500 mg tablet 500 mg PO Q12H #10 tabs 09/24/22 acetaminophen 500 mg tablet 500 mg PO Q6H PRN fever or pain 10/21/22 (Tylenol Extra Strength) #14 tabs cyclobenzaprine 5 mg tablet 5 mg PO Q8H PRN pain (scale score 10/21/22 7-10) 5 days #14 tabs lidocaine 5 % topical patch 1 patch topical DAILY PRN pain #30 10/21/22 (Lidoderm) ea naproxen 500 mg tablet 500 mg PO BID PRN pain 10 days #20 10/21/22 tabs Allergies Allergy/AdvReac Type Severity Reaction Status Date / Time No Known Allergies Allergy Verified 10/20/22 22:48 [No Known Allergies*] Review of Systems Review of Systems: Constitutional: No Fever, No Chills ENT/Mouth: No Ear Pain, No Nasal Congestion, No sore throat, No Rhinorrhea, No Swallowing Difficulty Cardiovascular: No Chest Pain, No SOB Respiratory: No Cough, No Sputum Gastrointestinal: No Nausea, No Vomiting, No Diarrhea, No Constipation, No Abdominal pain Genitourinary: No Dysuria, No Urinary Frequency, No Hematuria, No Flank Pain Musculoskeletal: + joint pain, No Myalgias, No Joint Swelling Skin: No Skin Lesions, No rash Neuro: No Weakness, No Numbness, No Paresthesias Yes all other systems are reviewed and are negative Constitutional: Constitutional: Reports as per [facility] Past Medical History Attestation statement: The following information was validated with the patient. Source: old records reviewed Medical History Asthma Social History Social History Alcohol intake: never Patient Tobacco Use Status: Current everyday Tobacco user Smoked in Last 30 Days: No Use of substances other than those prescribed or required for medical reasons: No Advance Directives: No Advance Directives Information Provided: No Patient : No Physical Exam Vital Signs: Vital Signs: Last Vital Signs Temp 98.5 F 10/21/22 00:00 Pulse 68 10/21/22 00:00 Resp 17 10/21/22 00:00 BP 141/78 H 10/21/22 00:00 Pulse Ox 96 10/21/22 00:00 O2 Del Method Room Air 10/21/22 00:00 BMI result Body Mass Index 46.6 Const: General: cooperative, healthy appearing and no acute distress Orientation/consciousness: patient oriented x3 Limitations: no limitations HEENT: Head: Yes normal to inspection and Yes atraumatic Ears: hearing grossly normal bilaterally General nose exam: Normal external nose present Face and sinus: Yes normal facial exam Eyes: General: appearance normal, both eyes and all related structures EOM: EOMs intact bilaterally Neck: Neck: Yes normal visual inspection and Yes no meningeal signs Resp: Effort & Inspection: normal respiratory effort and no respiratory distress Cardio: Rate: regular rate GI: Inspection: Yes normal to inspection Palpation (GI): Soft to palpation, nontender, no guarding and not rigid : General: Yes no CVA tenderness Back/Spine/Pelvis: Other: No midline cervical/thoracic/lumbar spinous tenderness/step-off or deformity. + right-sided lower lumbar paraspinal tenderness to palpation and MSK tenderness to palpation. No deformity/erythema or ecchymosis Back: no CVA tenderness Skin: Rashes: no rashes Wounds: no wounds Neuro: Other: Strength intact throughout. No saddle anesthesia. Sensation intact to light touch. Neurovascular intact distally General: patient oriented x3, gait normal, tone normal, moves all extremities, no meningeal signs and no focal motor deficits Cranial nerves: Yes CN's II- XII intact bilaterally and Yes Bilaterally intact EOM present Gait exam (Neuro): Normal gait present Motor exam (neuro): 5/5 motor strength present throughout Extrem: General: Yes normal to inspection Medications Administered Discontinued Medications Generic Name Dose Route Start Last Admin Trade Name Freq PRN Reason Stop Dose Admin Cyclobenzaprine HCl 10 mg 10/21/22 00:49 10/21/22 01:09 Cyclobenzaprine Hcl 10 Mg Tablet PO 10/21/22 00:50 10 mg ONCE ONE Administration Ketorolac Tromethamine 30 mg 10/21/22 00:49 10/21/22 01:08 Ketorolac Tromethamine 30 Mg/Ml Vial IM 10/21/22 00:50 30 mg ONCE ONE Administration Lidocaine 1 patch 10/21/22 00:49 10/21/22 01:07 Lidocaine 4 % Patch Adh..Patch TRANSDERMA 10/21/22 00:50 1 patch ONCE ONE Administration Protocol Medical Decision Making Medical Decision Making MDM Narrative: 42-year-old female with a past medical history of asthma presenting to the ED complaining of acute on chronic low back pain x 4 days. On exam vital signs stable, NAD, nontoxic appearing above physical exam as noted above. No midline spinous tenderness or red flag symptoms. Ambulating with steady gait. Abdomen soft/nontender, no CVAT. Concern for MSK pain/strain vs herniated disc. Low suspicion for cauda equina/cord compression, fracture, renal stone/pyelo or epidural abscess Plan: Pain management Results discussed with patient including worrisome signs and symptoms and strict return precautions, and when to return to the emergency department. They verbalized understanding and feel safe for discharge at this time. Differential Diagnosis Differential Diagnoses: The differential diagnosis associated with the presentation includes As above External Record Review External record reviewed: Inpatient record, Office record, Outpatient record, Prior outpatient labs, Prior outpatient radiology, Primary care record and Outside ED record Tests considered The following testing was considered but not selected: As above--imaging considered however deemed on useful at this time Prescription Management I considered prescription management with: Pain Medication Discharge Plan Discharge Clinical Impression: Strain of lumbar region Patient Disposition: Home, Self-Care Instructions: Acute Low Back Pain (ED) Additional Instructions: Your pain is likely musculoskeletal Flexeril is a muscle relaxer, take at night as it makes you drowsy, do not drive, drink alcohol, or operate machinery while taking it Naproxen as an anti-inflammatory / pain medication, take with food Lidoderm patches are numbing patches, apply to painful area In addition take Tylenol at home If symptoms persist or worsen, pain becomes unbearable, you developed urinary retention or incontinence, or weakness return to the ED Prescriptions: New acetaminophen [Tylenol Extra Strength] 500 mg tablet 500 mg PO Q6H PRN (Reason: fever or pain) Qty: 14 0RF lidocaine [Lidoderm] 5 % adhesive patch,medicated 1 patch topical DAILY MDD remove after 12 hours PRN (Reason: pain) Qty: 30 0RF Rx Instructions: leave on most painful area for up to 12 hrs naproxen 500 mg tablet 500 mg PO BID PRN (Reason: pain) 10 Days Qty: 20 0RF cyclobenzaprine 5 mg tablet 5 mg PO Q8H PRN (Reason: pain (scale score 7-10)) 5 Days Qty: 14 0RF No Action ketorolac 10 mg tablet 10 mg PO Q6H PRN (Reason: pain) 5 Days Qty: 20 0RF Rx Instructions: patient received IM toradol 30mg in the ED. prednisone 20 mg tablet 40 mg PO DAILY 5 Days Qty: 10 0RF cyclobenzaprine 10 mg tablet 10 mg PO TID PRN (Reason: muscle spasm) Qty: 18 0RF Rx Instructions: side effect is drowsiness. Do not take at work or while driving. prednisone 20 mg tablet 40 mg PO DAILY Qty: 10 0RF albuterol sulfate [ProAir HFA] 90 mcg/actuation HFA aerosol inhaler 2 puff inhalation Q4-6H PRN (Reason: shortness of breath or wheezing) Qty: 8.5 0RF albuterol sulfate 2.5 mg /3 mL (0.083 %) solution for nebulization 2.5 mg inhalation Q4-6H PRN (Reason: shortness of breath or wheezing) Qty: 180 0RF (DME) nebulizers Misc See Rx Instructions .Route Qty: 1 0RF Rx Instructions: As directed prednisone 50 mg tablet 50 mg PO DAILY 4 Days Qty: 4 0RF benzonatate 200 mg capsule 200 mg PO TID PRN (Reason: cough) Qty: 14 0RF cefuroxime axetil 500 mg tablet 500 mg PO Q12H Qty: 10 0RF Referrals: Physician,Unknown J [Primary Care Provider] - 3 days Stand Alone Forms: Work/School Release Interventions: ED Discharge Assessment Last Done: 10/21/22 02:06 Discharge Date/Time: 10/21/22 02:08
[2022-10-21] MEDS: Lidocaine 4 % Patch ADH..PATCH 1 PATCH TRANSDERMA (01:07)
[2022-10-21] MEDS: Ketorolac Tromethamine 30 MG/ML VIAL IM (01:08)
[2022-10-21] MEDS: Cyclobenzaprine HCl 10 MG TABLET PO (01:09)
== END 2022-10-21 02:08 | disposition home or self-care (01) ==
PROVIDERS: Emergency Provider Internal Medicine
DX: S39.012A Strain of muscle, fascia and tendon of lower back, initial encounter (principal); X58.XXXA Exposure to other specified factors, initial encounter; Y93.9 Activity, unspecified; Y92.9 Unspecified place or not applicable; Y99.9 Unspecified external cause status
CPT/HCPCS: 96372; 99284; J1885

== ENCOUNTER 2023-01-15 13:17 | Outpatient (AMB) | payer OTHER, SELFPAY ==
--- NOTE | 2023-01-15 13:59 | AM.OFFWIN_ITS ---
Intake Vital Signs 01/15/23 14:00 Height 5 ft 4.5 in Weight 276 lb BMI 46.6 BP 120/70 Blood Pressure Location Lt brachial Position Sitting Pulse 83 Pulse Source Pulse Oximeter Temp 98.3 F Temp Source Temporal Artery Scan Pulse Oximetry (%) 97 Oxygen Delivery Method Room Air Intake Visit Reasons: ACCOUNTS ADJUSTABLE CLERK- [phone] Intake Note: pt is here for c/o cough Patient Tobacco Use Status: Current everyday Tobacco user Allergies No Known Allergies [No Known Allergies*] Allergy (Verified 01/15/23 14:40) Do you need a note to return to daycare/school/sports/work: Yes HPI ACCOUNTS ADJUSTABLE CLERK- [phone] HPI Details Patient presents for a sick visit. Reporting symptoms of sinus congestion, sore throat and difficulty swallowing. Low-grade fever. No family member is sick. No recent travel. Patient reports symptoms of malaise and fatigue. REPLACED BY [facility] Medical History Asthma Social History Alcohol intake: never Patient Tobacco Use Status: Current everyday Tobacco user Physical Exam Vital Signs: Last Vital Signs Temp 98.3 F 01/15/23 14:00 Pulse 83 01/15/23 14:00 BP 120/70 01/15/23 14:00 Pulse Ox 97 01/15/23 14:00 Oxygen Delivery Method Room Air 01/15/23 14:00 BMI result Body Mass Index 46.6 Assessment & Plan Assessment & Plan (1) Upper respiratory tract infection: Code(s): J06.9 - Acute upper respiratory infection, unspecified Plan: Increase fluid intake. Tylenol for aches and pains. If symptoms worsen, follow-up here for a recheck. Will call with COVID results. No antibiotics needed. Orders: Orders SARS-CoV2/FLU/RSV Today R43.9 - Unspecified disturbances of smell and taste Coding Level of Care Code Est Pt Level 3 (93234) Diagnoses Upper respiratory tract infection J06.9
[2023-01-15 14:00] VITALS: BP 120/70; PULSE 83; TEMP 36.8; O2SAT 97; BMI 46.6
== END 2023-01-15 14:51 | disposition home or self-care (01) ==
PROVIDERS: Visit Provider Internal Medicine
DX: J06.9 Acute upper respiratory infection, unspecified (principal)
CPT/HCPCS: 99213

== ENCOUNTER 2023-01-15 15:34 | Outpatient (REF) | payer OTHER, SELFPAY ==
[2023-01-15 18:19] LABS: Influenza A PCR NEGATIVE (Negative); Influenza B PCR NEGATIVE (Negative); Resp Syncy Virus RNA Qual PCR NEGATIVE (Negative); SARS COV2 PCR INHOUSE NEGATIVE (Negative)
== END 2023-01-15 15:35 | disposition home or self-care (01) ==
LOC: HO.LAB 15:34
PROVIDERS: Visit Provider Internal Medicine
DX: R43.9 Unspecified disturbances of smell and taste (principal); Z20.822 Contact with and (suspected) exposure to COVID-19
CPT/HCPCS: 0241U

== ENCOUNTER 2023-02-24 04:59 | Emergency (ER) | payer OTHER, MEDICAID, SELFPAY ==
--- NOTE | ~2023-02-24 | XR_ITS ---
EXAMINATION: XR CHEST CLINICAL INFORMATION: Sore throat, shortness of breath COMPARISON: 09/23/2022 TECHNIQUE: Frontal view of the chest was obtained. FINDINGS: The lungs are clear with no focal consolidation. No evidence of pneumothorax, pulmonary edema, or pleural effusions. Mildly prominent cardiac silhouette which may be accentuated by apical lordotic positioning. No acute osseous findings are seen. XR/XR chest 1V IMPRESSION: No acute pulmonary findings.
[2023-02-24 05:10] VITALS: BP 114/70; PULSE 73; RESP 17; TEMP 36.9; O2SAT 100; BMI 46.1
[2023-02-24 05:25] VITALS: O2SAT 100
--- NOTE | 2023-02-24 05:27 | PC.NURSE ---
this rn assumed care of pt from waiting room @ 0510. triage done pt reports SOB and wheezing with 10/10 sore throat. pt managing secretions well, managing airway. pt placed on spo2 and conveyor monitor. pt awaiting to be seen by ed provider
[2023-02-24 05:41] LABS: IDNOW Serial# 6674DD1D; Strep A Nucleic Acid Negative (Negative)
[2023-02-24 06:08] LABS: Influenza A PCR NEGATIVE (Negative); Influenza B PCR NEGATIVE (Negative); Resp Syncy Virus RNA Qual PCR NEGATIVE (Negative); SARS COV2 PCR INHOUSE NEGATIVE (Negative)
--- NOTE | 2023-02-24 06:44 | ED_ITS ---
HPI - General Adult General Chief complaint: Upper Respiratory Symptoms Stated complaint: fever, sore throat Time Seen by Provider: 02/24/23 06:42 Source: patient Mode of arrival: ambulatory Limitations: no limitations History of Present Illness HPI narrative: Patient is a 43 year old assigned female at with a history of asthma presenting to the emergency department today with a sore throat and wheezing. Patient states that over the last 5 days she has had a sore throat and worsening wheezing. Patient denies any dizziness, lightheadedness, abdominal pain, nausea, vomiting, fever, chills, blurry vision, double vision, loss of vision, chest pain, difficulty breathing, shortness of breath, back pain, night sweats, pain with urination, increased urinary frequency, increased urinary urgency, blood in her urine or stool, syncope or a near syncopal episode, recent trauma or falls, bowel incontinence, bladder incontinence, bowel retention, bladder retention, or any other complaints at this time. Onset (ago): day(s) (5) Severity: mild Severity scale (1-10): 3 Quality: aching and dull Pain Consistency: constant Relieving factors: none Exacerbating factors: none Associated symptoms: denies other symptoms Treatments prior to arrival: none Related Data Previous Rx's Medication Instructions Recorded albuterol sulfate 2.5 mg/3 mL 2.5 mg (3 mL) inhalation Q4-6H PRN 11/24/21 (0.083 %) solution for nebulization shortness of breath or wheezing #180 mL albuterol sulfate 90 mcg/actuation 2 puff inhalation Q4-6H PRN 11/24/21 aerosol inhaler (ProAir HFA) shortness of breath or wheezing #8.5 grams nebulizers #1 ea 11/24/21 acetaminophen 500 mg tablet 500 mg PO Q6H PRN fever or pain 10/21/22 (Tylenol Extra Strength) #14 tabs penicillin V potassium 500 mg 500 mg PO BID 10 days #20 tabs 02/24/23 tablet prednisone 20 mg tablet 20 mg PO DAILY 7 days #7 tabs 02/24/23 Allergies Allergy/AdvReac Type Severity Reaction Status Date / Time No Known Allergies Allergy Verified 01/15/23 14:40 [No Known Allergies*] Review of Systems Constitutional: Constitutional: Reports no additional constitutional complaints, Denies chills, Denies fever(s) and Denies night sweats Eyes: Eyes: Reports no additional eye complaints, Denies blurry vision, Denies change in vision, Denies diplopia, Denies eye discharge, Denies loss of vision and Denies eye pain ENT: Denies dizziness and Reports sore throat Cardiovascular: Cardiovascular: Reports no additional cardiovascular complaints, Denies chest pain, Denies lightheadedness, Denies Loss of Consciousness and Denies dyspnea Respiratory: Respiratory: Reports no additional respiratory complaints, Denies dyspnea and Reports wheezing Gastrointestinal: Gastrointestinal: Reports no additional gastrointestinal complaints, Denies abdominal pain, Denies melena, Denies hematochezia, Denies change in bowel habits and Denies change in stool character Genitourinary: Genitourinary: Denies hematuria, Denies urinary frequency, Denies dysuria, Denies urinary incontinence, Denies urinary hesitancy and Denies urinary urgency Musculoskeletal: Musculoskeletal: Reports no additional musculoskeletal complaints, Denies numbness and Denies tingling Neurologic: Denies dizziness, Denies loss of vision, Denies numbness and Denies tingling Psychiatric: Psychiatric: Reports no additional psychiatric complaints Endocrine: Endocrine: Reports no additional endocrine complaints Hematologic/Lymphatic: Hematologic/Lymphatic: Reports no additional hematologic/lymphatic complaints Allergic/Immunologic: Allergic/Immunologic: Reports no additional allergic/immunologic complaints and Reports wheezing PMFSH Past Medical History Attestation statement: The following information was validated with the patient. Source: old records reviewed and nursing notes reviewed Medical History Asthma Social History Social History Alcohol intake: never Patient Tobacco Use Status: Current everyday Tobacco user Smoked in Last 30 Days: Yes Use of substances other than those prescribed or required for medical reasons: No Advance Directives: No Advance Directives Information Provided: No Patient : No Physical Exam ED Vital Signs: Vital Signs - 24 hr 02/24/23 05:10 02/24/23 05:25 02/24/23 07:04 Temperature 98.5 F Pulse Rate 73 75 Respiratory Rate 17 16 Blood Pressure 114/70 Pulse Oximetry 100 100 Oxygen Delivery Method Room Air Room Air BMI result Body Mass Index 46.1 Const General: cooperative, no acute distress, alert and awake Nutritional Appearance: well nourished Orientation/consciousness: patient oriented x3 Limitations: no limitations HENMT Head: Yes normal to inspection and Yes atraumatic Ears: hearing grossly normal bilaterally and external ears normal General nose exam: Normal external nose present, no nasal discharge noted and no epistaxis Face and sinus: Yes normal facial exam, No abrasion and No laceration Mouth: Normal oral and palatal mucosa present, no drooling and no muffled voice Throat: Yes abnormal tonsil (bilateral erythema and swelling) Eyes General: appearance normal, both eyes and all related structures Periorbital: periorbital findings normal Eyelids: Yes eyelids normal Conjunctivae: conjunctivae normal Pupils: Equal, round and reactive pupils present EOM: EOMs intact bilaterally Neck Neck: Yes normal visual inspection, Yes full ROM and Yes no lymphadenopathy Chest Chest palpation & inspection: normal inspection of the chest Resp Effort & Inspection: normal respiratory effort and able to speak in complete sentences Auscultation: wheezes throughout GI Inspection: Yes normal to inspection Neuro General: patient oriented x3 and moves all extremities Cranial nerves: Yes Equal, round and reactive pupils present Cognition (Neuro): normal cognition Motor exam (neuro): 5/5 motor strength present throughout Sensory Exam: Normal double simultaneous stimulation for sensation Coordination: [id number] test normal Extrem General: Yes normal to inspection, Yes full ROM and Yes capillary refill normal Psych Appearance: grossly normal Mental Status: mental status grossly normal Affect: normal affect Attitude: cooperative Thought process: Normal thought process present Thought content: Normal thought content present Insight: Good insight present (Psych) Medications Administered Discontinued Medications Generic Name Dose Route Start Last Admin Trade Name Freq PRN Reason Stop Dose Admin Albuterol Sulfate 7.5 mg/ 10 mg 02/24/23 06:59 02/24/23 07:02 Albuterol Sulfate 2.5 mg INHALE 02/24/23 07:00 10 mg ONCE ONE Administration Medical Decision Making Medical Decision Making MDM Narrative: Patient is a 43 year old assigned female at with a history of asthma presenting to the emergency department today with wheezing and a sore throat. Patient's physical exam showed mild wheezing throughout and bilateral erythematous and swollen tonsils. Patient's chest x-ray showed no acute process. Patient's RSV/COVID-19/Influenza and Strep swabs were both negative. I explained my physical exam findings as well as all test results to the patient. I answered all questions asked by the patient. Patient received a breathing treatment and Decadron which she stated helped her symptoms significantly. I stressed the importance of the patient taking her medication as prescribed. I stressed the importance of the patient following up with her primary care provider. I stressed the importance of the patient returning to the emergency department immediately if her symptoms were to worsen or if she were to develop any dizziness, shortness of breath, difficulty breathing, chest pain, blurry vision, loss of vision, nausea, vomiting, abdominal pain, fever, chills, back pain, or any other complaints. Patient verbalized agreement and understanding with this treatment plan and discharge. Differential Diagnosis Differential Diagnoses: The differential diagnosis associated with the presentation includes COVID-19 RSV Influenza Pharyngitis Strep pharyngitis Bronchitis Asthma exacerbation Lab Data MDM Lab Attestation statement: I reviewed the patient's lab results. My interpretation of these studies and their corresponding values is that they are grossly normal. Labs: Lab Results 02/24/23 Range/Units 05:27 Influenza Type A (PCR) NEGATIVE (Negative) Influenza Type B (PCR) NEGATIVE (Negative) RSV RNA Qual (PCR) NEGATIVE (Negative) SARS-CoV-2 RNA (RT-PCR) NEGATIVE (Negative) S. pyogenes GrpA NATAN Negative (Negative) Independent Interpretation I performed an independent interpretation of an: Plain X-Ray Interpretation: My interpretation is in agreement with the radiologist's impression of this imaging study. EXAMINATION: XR CHEST CLINICAL INFORMATION: Sore throat, shortness of breath COMPARISON: 09/23/2022 TECHNIQUE: Frontal view of the chest was obtained. FINDINGS: The lungs are clear with no focal consolidation. No evidence of pneumothorax, pulmonary edema, or pleural effusions. Mildly prominent cardiac silhouette which may be accentuated by apical lordotic positioning. No acute osseous findings are seen. XR/XR chest 1V IMPRESSION: No acute pulmonary findings. Dictated By: Amador Monroy MD Signed By: Electronically signed by Amador Monroy MD 02/24/23 0605 Radiology Impression Discussion of test interpretation with radiology: I have reviewed the radiologis t's reading. Prescription Management I considered prescription management with: Antibiotic (patient prescribed an antibiotic for pharyngitis) Discharge Plan Discharge Clinical Impression: Pharyngitis, Asthma Patient Disposition: Home, Self-Care Instructions: Asthma (DC), Pharyngitis (ED) Additional Instructions: Follow up with your primary care provider. Return to the emergency department immediately if your symptoms worsen or if you develop any dizziness, shortness of breath, difficulty breathing, chest pain, blurry vision, loss of vision, nausea, vomiting, abdominal pain, fever, chills, back pain, or any other complaints. Prescriptions: New prednisone 20 mg tablet 20 mg PO DAILY 7 Days Qty: 7 0RF penicillin V potassium 500 mg tablet 500 mg PO BID 10 Days Qty: 20 0RF No Action albuterol sulfate [ProAir HFA] 90 mcg/actuation HFA aerosol inhaler 2 puff inhalation Q4-6H PRN (Reason: shortness of breath or wheezing) Qty: 8.5 0RF albuterol sulfate 2.5 mg /3 mL (0.083 %) solution for nebulization 2.5 mg inhalation Q4-6H PRN (Reason: shortness of breath or wheezing) Qty: 180 0RF (DME) nebulizers Misc See Rx Instructions .Route Qty: 1 0RF Rx Instructions: As directed acetaminophen [Tylenol Extra Strength] 500 mg tablet 500 mg PO Q6H PRN (Reason: fever or pain) Qty: 14 0RF Referrals: [facility] [place] Family Medicine [Provider Group] (Call to establish and follow up with a primary care provider. If you already have a primary care provider, please follow up with them.) [facility] [place] [facility] [Provider Group] (Call to establish and follow up with a primary care provider. If you already have a primary care provider, please follow up with them.) [facility] [place] [facility] [Provider Group] (Call to establish and follow up with a primary care provider. If you already have a primary care provider, please follow up with them.) Stand Alone Forms: Work/School Release Print Language: Malawian
[2023-02-24] MEDS: Albuterol Sulfate 7.5 MG, Albuterol Sulfate (0.083%) 2.5 MG 10 MG INHALE (07:02)
[2023-02-24 07:04] VITALS: PULSE 75; RESP 16; O2SAT 100
[2023-02-24] MEDS: dexAMETHasone sod phosphate 10 MG/ML VIAL PO (07:54)
--- NOTE | 2023-02-24 08:01 | PC.NURSE ---
assumed care of pt at 0700. pt a&ox4, pleasant, calm, and cooperative. pt reports not feeling any better, medicated per mar, breathing treatment complete. pt does not appear to be in any respiratory distress. rr even/unlabored. mainly c/o sore throat. discharge education complete. pt gave verbal understanding.
== END 2023-02-24 08:05 | disposition home or self-care (01) ==
PROVIDERS: Emergency Provider Emergency Medicine
DX: J02.9 Acute pharyngitis, unspecified (principal); R50.9 Fever, unspecified; J45.909 Unspecified asthma, uncomplicated; R06.02 Shortness of breath; Z79.899 Other long term (current) drug therapy; Z20.822 Contact with and (suspected) exposure to COVID-19; Z20.828 Contact with and (suspected) exposure to other viral communicable diseases
CPT/HCPCS: 0241U; 71045; 87651; 94640; 99284; 99285; J1100

== ENCOUNTER 2023-11-05 | Emergency (ER) | payer MEDICAID, SELFPAY ==
--- NOTE | ~2023-11-05 | XR_ITS ---
EXAMINATION: XR ELBOW, LEFT CLINICAL INFORMATION: Pain. COMPARISON: None available. TECHNIQUE: AP, lateral, and oblique views of the left elbow. FINDINGS: The bones and soft tissues are normal. No fracture or joint effusion. Alignment is anatomic. Joint spaces are maintained. XR/XR elbow LT 2V IMPRESSION: No significant abnormality identified.
[2023-11-05 01:00] VITALS: BP 141/93; PULSE 77; RESP 20; TEMP 37; O2SAT 94; BMI 46.3
--- NOTE | 2023-11-05 02:53 | ED.EXTPRO ---
HPI - Extremity Problem General Chief complaint: Extremity Problem Stated complaint: pain in left elbow Time Seen by Provider: 11/05/23 02:45 Source: patient Mode of arrival: ambulatory Limitations: no limitations History of Present Illness ED Provider: Dr. Gilda Rubio HPI Narrative: Patient comes to the emergency room complaining of 1 month of intermittent numbness and tingling of the hand, mostly on the lateral aspect. Patient states that it does not matter how she moves her arm, she still has a numbness tingling sensation. Patient denies any trauma to the area. Patient states that sometimes she feels that her lateral fingers of the hand on the left feel weak and then she has to shake them of to feel better. Patient states that the sensation runs from the elbow down to the fingertips Related Data Previous Rx's ?Medication ?Instructions ?Recorded albuterol sulfate 2.5 mg/3 mL 2.5 mg (3 mL) inhalation Q4-6H PRN 11/24/21 (0.083 %) solution for nebulization shortness of breath or wheezing #180 mL albuterol sulfate 90 mcg/actuation 2 puff inhalation Q4-6H PRN 11/24/21 aerosol inhaler (ProAir HFA) shortness of breath or wheezing #8.5 grams nebulizers #1 ea 11/24/21 acetaminophen 500 mg tablet 500 mg PO Q6H PRN fever or pain 10/21/22 (Tylenol Extra Strength) #14 tabs penicillin V potassium 500 mg 500 mg PO BID 10 days #20 tabs 02/24/23 tablet prednisone 20 mg tablet 20 mg PO DAILY 7 days #7 tabs 02/24/23 gabapentin 100 mg capsule 100 mg PO BID PRN Numbness #30 caps 11/05/23 Allergies Allergy/AdvReac Type Severity Reaction Status Date / Time No Known Allergies Allergy Verified 11/05/23 01:03 [No Known Allergies*] Review of Systems Review of Systems: Constitutional : No Weight loss, No Fever, No Chills, No Night Sweats, No Fatigue, No Malaise ENT/Mouth : No Hearing loss, No Ear Pain, No Nasal Congestion, No Sinus Pain, No Hoarseness, No sore throat, No Rhinorrhea, No Swallowing Difficulty Eyes: No Eye Pain, No Swelling, No Redness, No Foreign Body, No Discharge, No Vision Changes Cardiovascular : No Chest Pain, No SOB, No Dyspnea on Exertion, No Orthopnea, No Edema, No Palpitations Respiratory : No Cough, No Sputum, No Wheezing, No Smoke Exposure, No Dyspnea Gastrointestinal : No Nausea, No Vomiting, No Diarrhea, No Constipation, No abdominal Pain, No Hematochezia, No Melena Genitourinary : no irregular bleeding, No Dysuria, No Urinary Frequency, No Hematuria, No Urinary Incontinence, No Urgency, No Flank Pain, No Urinary Flow Changes, No Hesitancy Musculoskeletal : Complaining of numbness tingling sensation from the elbow down to the fingertips especially in the lateral aspect of the hand, No Myalgias, No Joint Swelling Skin : No Skin Lesions, No rash Neuro : No Weakness, No Numbness, No Paresthesias, No Loss of Consciousness, No Dizziness, No Headache Psych : No Anxiety/Panic, No Depression, No SI/HI/AH/VH, No Social Issues, Heme/Lymph: No Bruising, No Bleeding,No Lymphadenopathy Endocrine : No Polyuria, No Polydipsia, No Temperature Intolerance [facility] Past Medical History Medical History Asthma Social History Social History Alcohol intake: never Patient Tobacco Use Status: Current everyday Tobacco user Advance Directives: No Advance Directives Information Provided: No Physical Exam Vital Signs: Vital Signs: Last Vital Signs Temp 98.6 F 11/05/23 01:00 Pulse 77 11/05/23 01:00 Resp 20 11/05/23 01:00 BP 141/93 H 11/05/23 01:00 Pulse Ox 94 11/05/23 01:00 O2 Del Method Room Air 11/05/23 01:00 BMI result Body Mass Index 46.3 Const: Other: Appearance: Alert. Oriented X3. No acute distress. Eyes: Pupils equal, round and reactive to light. ENT: Pharynx normal. Neck: Normal inspection. Neck supple. No lymph nodes noted. No crepitus CVS: Normal heart rate and rhythm. Pulses normal. Normal S1 and S2 Respiratory: No respiratory distress. Breath sounds normal. No Wheezing. No rales Abdomen: Soft and nontender. No rigidity. No distention. Skin: Skin warm and dry. Normal skin color. Normal skin turgor. Extremities: No lower extremity edema. No Lacerations. No Rash normal flexion-extension, able to open and close all fingers of the hand, normal strength Neuro: Oriented X 3. No motor deficit. No sensory deficit. Moving all extremities. No slurred speech. CN 2 through 12 grossly intact Psych: calm, cooperative, normal affect Medical Decision Making Medical Decision Making MDM Narrative: I discussed with the patient that given her symptoms, she likely has cubital tunnel syndrome -discussed with the patient that she will likely need bracing and possible physical therapy through her primary care physician. -my interpretation of x-ray of the elbow, normal alignment, no obvious fractures. Differential Diagnosis Differential Diagnoses: The differential diagnosis associated with the presentation includes (Paresthesias, color nerve entrapment) Independent Interpretation I performed an independent interpretation of an: Plain X-Ray Discharge Plan Discharge Clinical Impression: Cubital tunnel syndrome on left Patient Disposition: Home, Self-Care Instructions: Cubital Tunnel Syndrome (ED) Additional Instructions: Please follow-up with your primary care physician tomorrow. You may need physical therapy and a brace for her arm. If you have any worsening or new symptoms, please return to the emergency room or call 911 Prescriptions: New gabapentin 100 mg capsule 100 mg PO BID PRN (Reason: Numbness) Qty: 30 0RF No Action albuterol sulfate [ProAir HFA] 90 mcg/actuation HFA aerosol inhaler 2 puff inhalation Q4-6H PRN (Reason: shortness of breath or wheezing) Qty: 8.5 0RF albuterol sulfate 2.5 mg /3 mL (0.083 %) solution for nebulization 2.5 mg inhalation Q4-6H PRN (Reason: shortness of breath or wheezing) Qty: 180 [facility]RF [facility] See Rx Instructions .Route Qty: 1 0RF Rx Instructions: As directed acetaminophen [Tylenol Extra Strength] 500 mg tablet 500 mg PO Q6H PRN (Reason: fever or pain) Qty: 14 0RF prednisone 20 mg tablet 20 mg PO DAILY 7 Days Qty: 7 0RF penicillin V potassium 500 mg tablet 500 mg PO BID 10 Days Qty: 20 0RF Print Language: Welsh
[2023-11-05 03:06] VITALS: BP 141/93; PULSE 77; RESP 20; TEMP 37; O2SAT 94
== END 2023-11-05 03:08 | disposition home or self-care (01) ==
PROVIDERS: Emergency Provider Emergency Medicine
DX: G56.02 Carpal tunnel syndrome, left upper limb (principal)
CPT/HCPCS: 73070; 99283

== ENCOUNTER 2024-04-19 04:51 | Emergency (ER) | payer MEDICAID, SELFPAY ==
--- NOTE | ~2024-04-19 | XR_ITS ---
CLINICAL HISTORY: pain no injury 3 view right shoulder Comparison: None Findings: Bones intact. No dislocations. No significant arthritic change. Tiny calcification in the superior labrum. No erosions. No radiopaque foreign body. IMPRESSION: 1. No acute findings This document has been electronically signed by: Crow Lemon MD on 04/19/2024 06:42:26
[2024-04-19 04:53] VITALS: BP 149/88; PULSE 64; RESP 18; TEMP 36.5; O2SAT 96; BMI 44.9
--- NOTE | 2024-04-19 09:50 | ED.EXTPRO ---
HPI - Extremity Problem General Chief complaint: Extremity Injury, Upper Stated complaint: left shoulder pain Time Seen by Provider: 04/19/24 09:08 Source: patient Mode of arrival: ambulatory Limitations: no limitations History of Present Illness ED Provider: ELENI ARCHER Narrative: 44 yo female with PMH of asthma, c/o R shoulder pain pain on the deltoid, no rash, no numbness or weakness. R hand dominant. No prior injuries to that shoulder. States she cannot take the pain has been going on for 4 days. MD Complaint: joint swelling and joint pain Onset (ago): day(s) (4) Pain Consistency: constant Location: right and upper extremity Quality: aching, dull and constant Radiation: none Relieving factors: immobilization Exacerbating factors: range of motion and palpation Associated symptoms: denies other symptoms Related Data Previous Rx's ?Medication ?Instructions ?Recorded albuterol sulfate 2.5 mg/3 mL 2.5 mg (3 mL) inhalation Q4-6H PRN 11/24/21 (0.083 %) solution for nebulization shortness of breath or wheezing #180 mL albuterol sulfate 90 mcg/actuation 2 puff inhalation Q4-6H PRN 11/24/21 aerosol inhaler (ProAir HFA) shortness of breath or wheezing #8.5 grams nebulizers #1 ea 11/24/21 acetaminophen 500 mg tablet 500 mg PO Q6H PRN fever or pain 10/21/22 (Tylenol Extra Strength) #14 tabs penicillin V potassium 500 mg 500 mg PO BID 10 days #20 tabs 02/24/23 tablet prednisone 20 mg tablet 20 mg PO DAILY 7 days #7 tabs 02/24/23 gabapentin 100 mg capsule 100 mg PO BID PRN Numbness #30 caps 11/05/23 cyclobenzaprine 10 mg tablet 10 mg PO TID PRN muscle spasm #20 04/19/24 tabs lidocaine 5 % topical patch 1 patch topical DAILY #30 ea 04/19/24 prednisone 20 mg tablet 40 mg (2 x 20 mg) PO DAILY 5 days 04/19/24 #10 tabs Allergies Allergy/AdvReac Type Severity Reaction Status Date / Time No Known Allergies Allergy Verified 04/19/24 04:55 [No Known Allergies*] Review of Systems Review of Systems: Constitutional : No Fever, No Chills ENT/Mouth : No Ear Pain, No Hoarseness, No sore throat Eyes: No Eye Pain, No Swelling, No Redness, No Foreign Body Cardiovascular : No Chest Pain, No SOB Respiratory : No Cough, No Dyspnea Gastrointestinal : No Nausea, No Vomiting, No Diarrhea, No abdominal Pain Genitourinary : No Dysuria, No Hematuria Musculoskeletal : positive joint pain, No Myalgias, No Joint Swelling Skin : No Skin lacerations, No rash Neuro : No Weakness, No Numbness, No Loss of Consciousness, No Dizziness, No Headache All other systems reviewed and are negative FOR[facility]LY [facility], [facility] Past Medical History Attestation statement: The following information was validated with the patient. Source: old records reviewed Medical History Asthma Social History Social History Alcohol intake: never Patient Tobacco Use Status: Current everyday Tobacco user Advance Directives: No Advance Directives Information Provided: Yes Do you have a plan to hurt others: No Plan Physical Exam Vital Signs: Vital Signs: Last Vital Signs Temp 97.6 F 04/19/24 09:51 Pulse 67 04/19/24 09:51 Resp 18 04/19/24 09:51 BP 142/85 H 04/19/24 09:51 Pulse Ox 96 04/19/24 09:51 O2 Del Method Room Air 04/19/24 09:51 BMI result Body Mass Index 44.9 Appearance: Alert. Oriented X3. No acute distress. Eyes: Pupils equal, round and reactive to light. ENT: Pharynx normal. Neck: Normal inspection. Neck supple. CVS: Normal heart rate and rhythm. Pulses normal. Respiratory: No respiratory distress. Breath sounds normal. Abdomen: Soft and nontender. Skin: Skin warm and dry. Normal skin color. Normal skin turgor. Extremities: No lower extremity edema. ttp along R shoulder distal NV intact Neuro: Oriented X 3. No motor deficit. No sensory deficit. CN2-12 intact Medical Decision Making Medical Decision Making MDM Narrative: 44 yo female with PMH of asthma here with c/o R shoulder pain after waking up at 4am. No numbness or weakness, no signs of infection. Will xray and suspect tendonitis. At this time will start on steroids and muscle relaxers, work note anticipate DC home no signs of NV compromise or infection. Differential Diagnosis Differential Diagnoses: The differential diagnosis associated with the presentation includes tendonitis, shoulder strain, MSK pain Admission/Observation Consideration of admission/observation: Escalation of care including admission/observation considered not toxic, stable for DC Independent Interpretation I performed an independent interpretation of an: Plain X-Ray (no fracture) Radiology Impression Discussion of test interpretation with radiology: I have reviewed the radiologist's reading. External Record Review External record reviewed: Outpatient record Prescription Management I considered prescription management with: Pain Medication, Antibiotic and Other Discharge Plan Discharge Clinical Impression: Biceps tendinitis Qualifiers: Laterality: right Qualified Code(s): M75.21 - Bicipital tendinitis, right shoulder Patient Disposition: Home, Self-Care Instructions: Tendinitis (ED) Additional Instructions: Findings: Bones intact. No dislocations. No significant arthritic change. Tiny calcification in the superior labrum. No erosions. No radiopaque foreign body. IMPRESSION: 1. No acute findings return for weakness, numbness or any other concerns follow up with doctor if not better in 3 days Prescriptions: New cyclobenzaprine 10 mg tablet 10 mg PO TID PRN (Reason: muscle spasm) Qty: 20 0RF prednisone 20 mg tablet 40 mg PO DAILY 5 Days Qty: 10 0RF lidocaine 5 % adhesive patch,medicated 1 patch topical DAILY Qty: 30 0RF Rx Instructions: leave on most painful area for up to 12 hrs No Action albuterol sulfate [ProAir HFA] 90 mcg/actuation HFA aerosol inhaler 2 puff inhalation Q4-6H PRN (Reason: shortness of breath or wheezing) Qty: 8.5 0RF albuterol sulfate 2.5 mg /3 mL (0.083 %) solution for nebulization 2.5 mg inhalation Q4-6H PRN (Reason: shortness of breath or wheezing) Qty: 180 0RF (DME) nebulizers Misc See Rx Instructions .Route Qty: 1 0RF Rx Instructions: As directed acetaminophen [Tylenol Extra Strength] 500 mg tablet 500 mg PO Q6H PRN (Reason: fever or pain) Qty: 14 0RF prednisone 20 mg tablet 20 mg PO DAILY 7 Days Qty: 7 0RF penicillin V potassium 500 mg tablet 500 mg PO BID 10 Days Qty: 20 0RF gabapentin 100 mg capsule 100 mg PO BID PRN (Reason: Numbness) Qty: 30 0RF Stand Alone Forms: Work/School Release Interventions: ED Discharge Assessment Last Done: 04/19/24 09:58 Print Language: Vincentian
[2024-04-19 09:51] VITALS: BP 142/85; PULSE 67; RESP 18; TEMP 36.4; O2SAT 96
[2024-04-19 09:58] VITALS: BP 142/85; PULSE 67; RESP 18; TEMP 36.4; O2SAT 96
--- OUTSIDE RECORDS SUMMARY | 2024-04-19 10:50 | XMS_ITS | Clinical Summary ---
Author Organization [facility] Address [address] [place] [address] Care Team Providers Care Mast Maker Name Role Phone Brad Hammer MD Primary Care Provider [phone] Source Comments PLEASE NOTE, if this patient is a minor, it may be UNLAWFUL to discuss sensitive information that is contained in these records (such as FAMILY PLANNING, MENTAL HEALTH or SUBSTANCE ABUSE) with the minor patient's parent or other person without the patient's specific authorization.[facility] Allergies No known active allergies Medications cholecalciferol, vitamin D3, 25 mcg (1,000 unit) capsuleIndications :Vitamin D deficiency Take 1 Cap by mouth once daily 90 Cap 1 0 Active loratadine (CLARITIN) 10 mg tabletIndications: Suspected COVID-19 virus infection Take 1 Tab by mouth once daily as needed for allergies 30 Tab 1 0 Active diclofenac sodium (VOLTAREN) [address] tabletIndications: Muscle spasm of back Take 1 Tablet by mouth 2 (two) times daily 60 Tablet 1 1 Active albuterol sulfate 90 mcg/actuation inhaler INHALE 1 TO 2 PUFFS BY MOUTH INTO THE LUNGS EVERY 4 TO 6 HOURS NEEDED WHEEZING 2 Active lidocaine 4 % gel See Instructions, apply topically daily as needed for pain x7 days, # 1 each, 0 Refills, Maintenance, 12/12/20 10:10:00 EDT, [id number], Partial fill upon patient request if the prescription is for a schedule II opioid drug., apply to... 1 Active budesonide-formote roL (SYMBICORT) 80-4.5 mcg/actuation inhalerIndications :Mild intermittent asthma without complication Inhale 2 Puffs into the lungs 2 (two) times daily 10.2 g 5 2 Active nebulizer and compressorIndicati ons:Mild intermittent asthma without complication Pt has Asthma J 45.20 1 Each 2 Active nebulizer accessoriesIndicat ions:Mild intermittent asthma without complication Pt has Asthma J 45.20 1 Each 2 Active methocarbamoL (ROBAXIN) 750 mg tabletIndications: Left elbow pain Take 1 Tablet by mouth 3 (three) times daily 30 Tablet 4 Active naproxen sodium (ANAPROX) 550 mg tabletIndications: Left elbow pain,Numbness and tingling in left arm Take 1 Tablet by mouth 2 (two) times daily with a meal 60 Tablet 4 Active levothyroxine 50 mcg tabletIndications: Subclinical hypothyroidism Take 1 Tablet by mouth once daily 90 Tablet 1 4 Active Active Problems Problem Noted Date Diagnosed Date Numbness and tingling in left arm 11/16/2023 Left elbow pain 11/16/2023 Mild intermittent asthma without complication Overview (05/06/2022): Sees Rug Renovator Other specified hypothyroidism 04/24/2019 Vitamin D deficiency 04/24/2019 Pap smear for cervical cancer screening 07/17/19 18 Overview (07/16/2017): 07/13/2017 NEPA ThinPrep: Negative for squamous intraepithelial lesion and malignancy HPV: Negative Chalmydia: Negative N. Gonorrhoeae: Negative Class 3 severe obesity due t o excess calories without serious comorbidity with body mass index (BMI) of 40.0 to 44.9 in adult ([facility]) 06/18/2017 Resolved Problems Problem Noted Date Diagnosed Date Resolved Date Numbness and tingling 04/24/20192020 Homelessness 05/19/2018 01/31/2021 Encounters Date Type Department Care Team Description 01/28/2024 Interim Notes [place] [address] [place] [address] Deyvi De La Garza PA-C Carpal tunnel syndrome on left (Primary Dx) from Last 3 Months Immunizations Name Administration Dates Next Due Hep B,adult,adjuvanted (HEPLISAV) 11/16/2023 INFLUENZA VIRUS VACCINE P&EMIC FORMULATION 02/18 PNEUMOCOCCAL CONJUGATE PCV 20 (Prevnar) 11/16/19 PNEUMOCOCCAL POLYSACCHARIDE PPV23 12/10/2015 TDAP 07/15/2010 Social History Tobacco Use Types Packs/Day Years Used Date Smoking Tobacco: Every Day Cigarettes Smokeless Tobacco: Never Chew Tobacco Cessation:Ready to Q uit: No; Counseling Given: Yes Comments:Less than half a pack Alcohol Use Standard Drinks/Week Comments Yes 0 (1 standard drink = 0.6 oz pur e alcohol) socially Social Connections Answer Date Recorded Connectedness 1 11/16/2023 Financial Resource Strain Answer Date R ecorded Financial Resource Strain 1 2023 Stress Answer Date Recorded Stress 1 11/16/2023 Physical Activity Answer Date Recorded Physical Activity 0 11/19/2018 Food Insecurity Answer Date Recorded Food 1 11/16/2023 Transportation Needs Answer Date Record ed Transportation 1 11/16/2023 Housing Stability Answer Date Recorded Housing 1 11/16/2023 Safety and Environment Answer Date Boris rded Safety 1 11/16/2023 Utilities Answer Date Recorded Utilities 1 11/16/2023 Employment Answer Date Recorded Employment 0 11/19/2018 Comments No Sex and Gender Information Value Date Recorded Sex Assigned at Female 05/13/2017 8:55 AM PST Legal Sex Female 11:36 AM PDT Gender Identity Female 05/13/2017 8:55 AM PST Sexual Orientation Straight 05/13/2017 8: 55 AM PST Last Filed Vital Signs Vital Sign Reading Time Taken Comments Blood Pressure 174/76 11/16/2023 3:08 PM EDT Pulse 74 11/16/2023 3:08 PM EDT Temperature 37 ??C (98.6 ??F) 11/16/2023 3:08 PM EDT Respiratory Rate 18 11/16/2023 3:08 PM EDT Oxygen Saturation 96% 11/16/2023 3:08 PM EDT Inhaled Oxygen Concentration - - Weight 132 kg (291 lb) 11/16/2023 3:08 PM EDT Height 165.1 cm (5' 5 ) 11/16/2023 3:08 PM EDT Body Mass Index 48.42 11/16/2023 3:08 PM EDT Plan of Treatment Health Maintenance Due Date Last Done Comments HPV Screening 1982 Pap + HPV 1982 Annual Preventive Care Visit 07/13/2018 07/13/2017, 06/18/2017 Cervical Cancer Screening 07/13/2020 Pap Smear 07/13/2020 07/13/2017 Tobacco Cessation Counseling (#1) 12/05/2022 022 [id number] ( season) 2023 Imm-Influenza (#1) 2023 02/18/2009 Imm-Hepatitis B (2 of 2 - Cp G 2-dose series) 12/14/2023 11/16/2023 Alcohol and Drug Screen 03/29/2024 11/16/19 24, 12/05/2021, 01/31/2021, Additional history exists Depression Annual Screen 03/29/2024 11/16/2023, 05/28 Breast Cancer Screening (Mammogram) 06/01/2024 12/03/2023 Hypertension Screening (#1) 11/15/2024 Relationship Safety Screening/Counseling 11/15/2024 11/16/2023, 01/31/2021 TSH Monitoring 11/15/2024 11/16/2023, 10/28, 12/05/2021, Additional history exists Diabetes Screening 11/15/2026 11/16/2023, 0 04/19/2020, 04/24/2019, Additional history exists Lipid Screening 11/15/2026 11/16/2023, 04/24/2019 Imm-DTaP/Tdap/Td Discontinued 07/15/2010 HIV Screening Completed 11/16/2023 Hepatitis C Screening Completed 11/16/2023 Imm-Pneumococcal Completed 11/16/2023, 12/10/2015 Cervical Ablation/Cold-Knife Conization Discontinued Cervical Cryotherapy Discontinued Colposcopy Discontinued Endometrial Biopsy Discontinued Excision/Leep Discontinued HPV Genotyping Discontinued Vaginal Pap Discontinued Vulvoscopy Discontinued Procedures Procedure Name Priority Date/Time Associated Diagnosis Comments PROCEDURE SCANNED DOCUMENT 01/24/2024 3:00 AM EDT REFERRAL FOR MAMMOGRAM Routine 12/03/2023 3:00 AM EDT Breast cancer screening by mammogram HIV 1/2 AG & AB W/RFLX (4TH GEN) Routine 11/16/2023 4:33 PM EDT Routine screening for STI (sexually transmitted infection) THYROID CASCADING REFLEX PANEL Routine 11/16/2023 4:33 PM EDT Subclinical hypothyroidism HEPATITIS C AB W/RFLX HCV RNA, QT, RT PCR Routine 11/16/2023 4:33 PM EDT Routine screening for STI (sexually transmitted infection) COMPREHENSIVE METABOLIC PANEL Routine 11/16/2023 4:33 PM EDT Class 3 severe obesity due to excess calories without serious comorbidity with body mass index (BMI) of 40.0 to 44.9 in adult ([facility]) Subclinical hypothyroidism LIPID PANEL Routine 11/16/2023 4:33 PM EDT Class 3 severe obesity due to excess calories without serious comorbidity with body mass index (BMI) of 40.0 to 44.9 in adult ([facility]) PAP, LIQUID BASED Routine 07/13/2017 1:3 1 PM EDT Pap smear, as part of routine gynecological examination from Last 3 Months or Most Recently Relevant to Health Maintenance Results * PROCEDURE SCANNED DOCUMENT (01/24/2024 3:00 AM EDT) 01/24/2024 3:00 AM EDT us Deyvi De La Garza PA-C SCAN PROCEDURES Final Result * REFERRAL FOR MAMMOGRAM (12/03/2023 3:00 AM EDT) 12/03/2023 3:00 AM EDT us Deyvi De La Garza PA-C IMG RFL MAMMO Edited Resul t - Final * HEPATITIS C AB W/RFLX HCV RNA, QT, RT PCR (11/16/2023 4:33 PM EDT) HEPATITIS C ANTIBODY NON-REACT [place] NON-REACT [place] [facility] Comment: HCV antibody was non-reactive. There is no laboratory evidence of HCV infection. In most cases, no further action is required. However, if recent HCV exposure is suspected, a test for HCV RNA (test code 88244) is suggested. For additional information please refer to http://Storyvine.[employer]faq/EFJ97u1 (This link is being provided for informational/ educational purposes only.) Blood Blood / Unknown 11/16/2023 4 :33 PM EDT 11/16/2023 4:33 PM EDT Narrative [facility] - 11/20/2023 4:03 PM EDT FASTING:NO Deyvi De La Garza PA-C LAB - BLOOD DRAW Edited Resu lt - Final [facility] [address] [place] [id number], [facility] [address] [address] * HIV 1/2 AG & AB W/RFLX (4TH GEN) (11/16/2023 4:33 PM EDT) Pathologist [facility] HIV AG/AB, 4TH GEN NON-REAC TIVE NON-REAC TIVE [facility] Comment: HIV-1 antigen and HIV-1/HIV-2 antibodies were not detected. There is no laboratory evidence of HIV infection. PLEASE NOTE: This information has been disclosed to you from records whose confidentiality may be protected by state law. ??If your state requires such protection, then the state law prohibits you from making any further disclosure of the information without the specific written consent of the person to whom it pertains, or as otherwise permitted by law. A general authorization for the release of medical or other information is NOT sufficient for this purpose. ?? For additional information please refer to http://Storyvine.[employer]faq/CWB237 (This link is being provided for informational/ educational purposes only.) The performance of this assay has not been clinically validated in patients less than 2 years old. Blood Blood / Unknown 11/16/2023 4 :33 PM EDT 11/16/2023 4:33 PM EDT Narrative [facility] - 11/20/2023 4:03 PM EDT FASTING:NO us Deyvi De La Garza PA-C LAB - BLOOD DRAW Final Resul t Performing Organization Address [facility] de Phone Number [facility] [address] [address], [employer] [address] [address] * (ABNORMAL) THYROID CASCADING REFLEX PANEL (11/16/2023 4:33 PM EDT) TSH 11.29(H) 0.40 - 4.50 mIU/L [facility] Comment: ?Reference Range ?> or = 20 Years ??0.40-4.50 ? Ranges ?First trimester ?0.26-2.66 ?Second trimester ?? 0.55-2.73 ?Third trimester ?0.43-2.91 Blood Blood / Unknown 11/16/2023 4 :33 PM EDT 11/16/2023 4:33 PM EDT Narrative [facility] - 11/20/2023 4:03 PM EDT FASTING:NO us Deyvi De La Garza PA-C LAB - BLOOD DRAW Edited Resu lt - Final Performing Organization Address [facility] Co de Phone Number [facility] [address] [address], [employer] [address] [address] * (ABNORMAL) LIPID PANEL (11/16/2023 4:33 PM EDT) CHOLESTEROL, TOTAL 142 <200 mg/dL [facility] HDL CHOLESTEROL 41(L) > OR = 50 mg/dL [facility] TRIGLYCERIDES 62 <150 mg/dL [facility] LDL-CHOLESTEROL 87 99 mg/dL (calc) [facility] Comment: Reference range: <100 Desirable range <100 mg/dL for primary prevention; ?? <70 mg/dL for patients with CHD or diabetic patients with > or = 2 CHD risk factors. LDL-C is now calculated using the Alejandro calculation, which is a validated novel method providing better accuracy than the Friedewald equation in the estimation of LDL-C. Willam BOSCH et al. JENS. 2013;310(80): 4602-5105 (http://education.Ruxter/faq/EKI529) CHOL/HDLC RATIO 3.5 <5.0 (calc) [facility] NON-HDL CHOLESTEROL 101 <130 mg/dL (calc) [facility] Comment: For patients with diabetes plus 1 major ASCVD risk factor, treating to a non-HDL-C goal of <100 mg/dL (LDL-C of <70 mg/dL) is considered a therapeutic option. Blood Blood / Unknown 11/16/2023 4 :33 PM EDT 11/16/2023 4:33 PM EDT Narrative [facility] - 11/20/2023 4:03 PM EDT FASTING:NO us Deyvi De La Garza PA-C LAB - BLOOD DRAW Final Resul t [facility] [address] [address], [facility] [address] [address] * COMPREHENSIVE METABOLIC PANEL (11/16/2023 4:33 PM EDT) [facility] GLUCOSE 103 65 - 139 mg/dL [facility] Comment: ?Non-fasting reference interval UREA NITROGEN (BUN) 8 7 - 25 mg/dL [facility] CREATININE (blood) 0.72 0.50 - 0.99 mg/dL [facility] EGFR 108 > OR = 60 mL/min/1. 73m2 [facility] BUN/CREATININE RATIO SEE NOTE: 6 [facility] Comment: ?? Not Reported: BUN and Creatinine are within ?? reference range. ? SODIUM 138 135 - 146 mmol/L [facility] POTASSIUM 4.2 3.5 - 5.3 mmol/L [facility] CHLORIDE 104 98 - 110 mmol/L [facility] CARBON DIOXIDE 28 20 - 32 mmol/L [facility] CALCIUM 9.0 8.6 - 10.2 mg/dL [facility] PROTEIN, TOTAL 7.0 6.1 - 8.1 g/dL [facility] ALBUMIN 3.9 3.6 - 5.1 g/dL [facility] GLOBULIN 3.1 1.9 - 3.7 g/dL (calc) [facility] ALBUMIN/GLOBULI N RATIO 1.3 1.0 - 2.5 (calc) [facility] BILIRUBIN, TOTAL 0.8 0.2 - 1.2 mg/dL [facility] ALKALINE PHOSPHATASE 108 31 - 125 U/L [facility] AST 15 10 - 30 U/L [facility] ALT 18 6 - 29 U/L [facility] Blood Blood / Unknown 11/16/2023 4 :33 PM EDT 11/16/2023 4:33 PM EDT Narrative [facility] - 11/20/2023 4:03 PM EDT FASTING:NO Deyvi De La Garza PA-C LAB - BLOOD DRAW Edited Resu lt - Final [facility] [address] [address], [facility] [address] [address] * (ABNORMAL) PAP, LIQUID BASED (07/13/2017 1:31 PM EDT) Protected specimen brush (physical object) Cervix uteri structure / Unknown 07/13/2017 1:31 PM EDT Impressions [facility] - 07/13/2017 1:31 PM EDT ThinPrep Pap, Imaged: Negative for Squamous Intraepithelial Lesion and Malignancy Clue cells are present HPV Negative us Nneka Holman RESEARCH ENGINEER LAB - NO BLOOD DRAW Final Result [facility] [address] [place] [address], from Last 3 Months or Most Recently Relevant to Health Maintenance Insurance [facility] [address] [employer] NET DENTAL [facility] Care Teams Mast Maker Relationship Specialty Start Date End Date Brad Hammer MD [address] [place] [address] PCP - General Internal Medicine 04/16/17
--- OUTSIDE RECORDS SUMMARY | 2024-04-19 10:50 | XMS_ITS | Clinical Summary ---
Author Organization [facility] Address [address] [place] [phone] Phone Care Team Providers Care Show Host Or Hostess Name Role Phone Physician, Pcp Unknown Primary Care Provider Gabriela vailable Allergies No known active allergies Medications No known medications Encounters Date Type Department Care Team Description 03/16/2024 2:30 PM EST Consult Orthopedic Surgery - [place] [address] [facility] [address] [place] [phone] Maryam Yates PA Cubital tunnel syndrome on left (Primary Dx); Carpal tunnel syndrome on left 01/24/2024 3:13 PM EDT - 01/24/2024 11:59 PM EDT Hospital Encounter [facility] [address] [place] [phone] Deyvi De La Garza PA Discharge Disposition: Home or Self Care from Last 3 Months Social History Tobacco Use Types Packs/Day Years Used Date Smoking Tobacco: Never Assessed Sex and Gender Information Value Date Recorded Sex Assigned at Not on file Gender Identity Not on file Sexual Orientation Not on file Job Start Date Occupation Industry Not on file Not on file Not on file Last Filed Vital Signs Vital Sign Reading Time Taken Comments Blood Pressure - - Pulse - - Temperature - - Respiratory Rate - - Oxygen Saturation - - Inhaled Oxygen Concentration - - Weight 125 kg (276 lb) 03/16/2024 2:30 PM EST Height 165.1 cm (5' 5 ) 03/16/2024 2:30 PM EST Body Mass Index 45.93 03/16/2024 2:30 PM EST Plan of Treatment Health Maintenance Due Date Last Done Comments Breast Cancer Screening 1982 Cervical Cancer Screening: P ap Smear 07/13/2020 07/13/2017 DTaP,Tdap,and Td Vaccines (2 - Td or Tdap) 07/15/2020 07/15/2010 HIV Screening 03/01/2022 Social Influencers of Health Screening 03/01/2022 COVID-19 Vaccine (1 - 2023-2 5 season) 2023 Influenza Vaccine (#1) 2023 Hepatitis B Vaccines (2 of 2 - CpG 2-dose series) 12/14/2023 11/16/2023 Depression Screening 11/15/2024 11/16/2023 Cholesterol Screening (Lipid Panel) 11/15/2028 11/16/2023, 11/16/2023, 04/24/2019 Hepatitis C Screening Completed 11/16/2023 Pneumococcal Vaccine: Pediatrics (0 to 5 Years) and At-Risk Patients (6 to 64 Years) Completed 11/16/2023, 12/10/2015 HIB Vaccines Aged Out No longer eligi ble based on patient's age to complete this topic HPV Vaccines Aged Out No longer eligi ble based on patient's age to complete this topic Hepatitis A Vaccines Aged Out No long er eligible based on patient's age to complete this topic IPV Vaccines Aged Out No longer eligi ble based on patient's age to complete this topic MMR Vaccines Aged Out No longer eligi ble based on patient's age to complete this topic Meningococcal ACWY Vaccine Aged Out N o longer eligible based on patient's age to complete this topic RSV Immunization Patients Under 20 months Aged Out No longer eligible b ased on patient's age to complete this topic Varicella Vaccines Aged Out No longer eligible based on patient's age to complete this topic Procedures Procedure Name Priority Date/Time Associated Diagnosis Comments XR ELBOW 3+ VIEWS LEFT Routine 03/16/2024 3:09 PM EST Carpal tunnel syndrome on left EXTERNAL NEUROLOGY REPORT 01/24/2024 from Last 3 Months Results * XR Elbow 3+ Views Left (03/16/2024 3:09 PM EST) Anatomical Region Laterality Modality Upper Extremities, Elbow Left Compute d Radiography Narrative 03/16/2024 4:15 PM EST Date of Visit: 03/16/2024 Reason for visit: Left elbow pain Views: AP, lateral, with left elbow Comparison: None Findings: No fracture or dislocation or lytic lesions. ??Normal radiocapitellar and ulnar relationships. Impression: Normal left elbow radiograph Maryam CAVAZOS IMG XR PROCEDURES * External Neurology Report (01/24/2024) Provider Onbase NEUROLOGY ORDERABLES from Last 3 Months Care Teams Show Host Or Hostess Relationship Specialty Start Date End Date Physician, Pcp Unknown PCP - General 03/07/24
== END 2024-04-19 09:58 | disposition home or self-care (01) ==
PROVIDERS: Emergency Provider Emergency Medicine
DX: M75.21 Bicipital tendinitis, right shoulder (principal); M25.511 Pain in right shoulder; J45.909 Unspecified asthma, uncomplicated; F17.210 Nicotine dependence, cigarettes, uncomplicated; Z79.899 Other long term (current) drug therapy
CPT/HCPCS: 73030; 99282; 99283

== ENCOUNTER → 2024-04-19 05:55 | Outpatient (BNV) | payer MEDICAID, SELFPAY | PROVIDERS: Visit Provider Radiology Diagnostic Radiology | DX: R52 Pain, unspecified (principal) | CPT/HCPCS: 73030 ==

== ENCOUNTER 2024-04-30 11:01 | Emergency (ER) | payer MEDICAID, SELFPAY ==
--- NOTE | ~2024-04-30 | US_ITS ---
CLINICAL HISTORY: Right upper extremityu pain. DVT? Venous duplex ultrasound right upper extremity Comparison: None Findings: Accessible deep venous segments are fully compressible with normal Doppler color flow and spectral tracings. IMPRESSION: 1. Negative for right upper extremity deep vein thrombosis. This document has been electronically signed by: Car Christie MD on 04/30/2024 13:09:58
[2024-04-30 11:07] VITALS: BP 132/85; PULSE 87; RESP 18; TEMP 36.9; O2SAT 96; BMI 51.3
--- NOTE | 2024-04-30 11:17 | ED_ITS ---
HPI - Extremity Problem General Chief complaint: Extremity Injury, Upper Stated complaint: shoulder pain Time Seen by Provider: 04/30/24 12:21 Source: patient Mode of arrival: ambulatory Limitations: no limitations History of Present Illness ED Provider: PHOENIX MORRIS PA-C HPI Narrative: 44 year old female with pmhx significant for asthma presents to the ED today for evaluation of right shoulder pain x2 weeks. She reports waking up with the pain and initialy thought she slept wrong. The pain continued, prompting her to come to the ED for further evaluation on 04/19/24. She was diagnosed with bicipital tendonitis and discharged with lido patches, muscle relaxer, and prednisone which she has completed without improvement in pain. She has attempted to make a follow up appointment with her PCP however has not received a call back. Now endorses continued pain within the right shoulder, radiating down her right upper arm. Pain is worse with movement of the shoulder. Denies change in pain since initial eval. Denies blunt injury or trauma. She does desk work for a living. Denies numbness/tingling/weakness of the RUE. Denies recent travel/long car rides, OCP use or hormone use. Denies chest pain, sob, palpitations, fever, chills. Related Data Previous Rx's ?Medication ?Instructions ?Recorded albuterol sulfate 2.5 mg/3 mL 2.5 mg (3 mL) inhalation Q4-6H PRN 11/24/21 (0.083 %) solution for nebulization shortness of breath or wheezing #180 mL albuterol sulfate 90 mcg/actuation 2 puff inhalation Q4-6H PRN 11/24/21 aerosol inhaler (ProAir HFA) shortness of breath or wheezing #8.5 grams nebulizers #1 ea 11/24/21 acetaminophen 500 mg tablet 500 mg PO Q6H PRN fever or pain 10/21/22 (Tylenol Extra Strength) #14 tabs penicillin V potassium 500 mg 500 mg PO BID 10 days #20 tabs 02/24/23 tablet prednisone 20 mg tablet 20 mg PO DAILY 7 days #7 tabs 02/24/23 gabapentin 100 mg capsule 100 mg PO BID PRN Numbness #30 caps 11/05/23 cyclobenzaprine 10 mg tablet 10 mg PO TID PRN muscle spasm #20 04/19/24 tabs lidocaine 5 % topical patch 1 patch topical DAILY #30 ea 04/19/24 prednisone 20 mg tablet 40 mg (2 x 20 mg) PO DAILY 5 days 04/19/24 #10 tabs naproxen 500 mg tablet 500 mg PO Q12H PRN pain (scale 04/30/24 score 1-3) #20 tabs Allergies Allergy/AdvReac Type Severity Reaction Status Date / Time No Known Allergies Allergy Verified 04/30/24 11:11 [No Known Allergies*] Review of Systems Review of Systems: Constitutional: No fever, chills, fatigue, night sweats, weight changes ENT/Mouth: No ear pain, hearing loss, nasal congestion, sinus pain, rhinorrhea, sore throat Eyes: No eye pain, swelling, redness, vision changes, discharge Cardio: No chest pain, palpitations, KOWALSKI, orthopnea, peripheral edema Pulm: No SOB, cough, sputum, wheezing, dyspnea, hemoptysis GI: No nausea, vomiting, hematemesis, abdominal pain, diarrhea, constipation, hematochezia, melena : No irregular bleeding, dysuria, frequency, urgency, hesitancy, hematuria, flank pain, urinary flow changes, urinary incontinence or retention MSK: No back pain, neck pain, joint pain, myalgias, +right shoulder pain Skin: No lesions, rashes Neuro: No weakness, numbness, paresthesias, LOC, dizziness, headache Psych: No anxiety/panic, depression, SI/HI, AH/VH All other systems reviewed and are negative. [facility] Past Medical History Attestation statement: The following information was validated with the patient. Source: old records reviewed and nursing notes reviewed Medical History Asthma Social History Social History Alcohol intake: never Patient Tobacco Use Status: Current everyday Tobacco user Physical Exam Vital Signs: Vital Signs: Last Vital Signs Temp 98.4 F 04/30/24 14:08 Pulse 87 04/30/24 14:08 Resp 18 04/30/24 14:08 BP 132/85 04/30/24 14:08 Pulse Ox 96 04/30/24 14:08 O2 Del Method Room Air 04/30/24 14:08 BMI result Body Mass Index 51.3 vital signs stable. General: Well appearing, in no acute distress. Skin: Warm, dry, intact. No rashes or lesions. Head: Normocephalic, atraumatic. EENT: Hearing is intact b/l. Conjunctiva clear. PERRLA. EOM intact. Moist mucous membranes.? Neck: Supple without LAD Cardiac: Chest wall symmetric. RRR Lungs: Normal respiratory effort without accessory muscle use. CTA bilaterally Ext: +no noted swelling/ overlying skin changes to right shoulder. ttp along anterior aspect of right shoulder w/o palpable deformity, fluctuance, crepitus, or warmth. Limited ROM on abduction and extension of right shoulder secondary to pain. 2+radial/ ulnar pulse intact Neuro: AOx3. Normal speech. Ambulating with steady gait. Psych: Appropriate mood and affect. Responds appropriately to questions. Course Course Course Narrative: RME: 44-year-old female presents to ED for right shoulder pain since April 19 that is worse on movement. Patient was seen here week ago diagnosed with biceps tendinitis. PATIENT STATES FEELING HER RIGHT ARM IS SWOLLEN WITHOUT ANY RECENT TRAUMA. ON EXAM SHOULDER MOTOR EXAM LIMITED DUE TO PAIN BUT NEUROVASCULAR EXAM INTACT. NEGATIVE FOR SWELLING. X-RAY DONE PREVIOUS VISIT SHOWED CALCIFICATION OF THE LABRUM MOST LIKELY CAUSING TENDINITIS BUT WE WILL SEND ULTRASOUND RULE OUT DVT. '.; Medications Administered Discontinued Medications Generic Name Dose Route Start Last Admin Trade Name Freq PRN Reason Stop Dose Admin Ketorolac Tromethamine 30 mg 04/30/24 13:11 04/30/24 13:29 Ketorolac Tromethamine 30 Mg/Ml Vial IM 04/30/24 13:12 30 mg ONCE ONE Administration Medical Decision Making Medical Decision Making [facility] Narrative: 44 year old female with pmhx significant for asthma presents to the ED today for evaluation of right shoulder pain x2 weeks. Vital signs stable. she is nontoxic appearing and in NAD. on exam of RUE, no noted swelling/ overlying skin changes to right shoulder. ttp along anterior aspect of right shoulder w/o palpable deformity, fluctuance, crepitus, or warmth. Limited ROM on abduction and extension of right shoulder secondary to pain. 2+radial/ ulnar pulse intact Differential diagnosis includes bursitis, tendonitis, ligament/ tendon injury. Lower suspicion for DVT. unlikely dislocation, fracture, NV compromise, threat to limb, compartment syndrome. presentation is not consistent with ACS. US RUE obtained prior to my assumption of care. Negative for DVT. I reviewed right shoulder xray obtained on 04/19/24 which shows calcification in the superior labrum, likely secondary to tendinitis. Her exam is consistent with tendonitis. She has been placed in a sling for comfort. Educated her on removing her arm from the sling and moving it around multiple times a day to prevent frozen shoulder. Naproxen sent to pharmacy for pain control. Ortho referral provided. Patient has remained stable throughout ED visit today. Discussed worrisome signs and symptoms and when to return to the ED. All questions answered at this time. Patient is agreeable with disposition and stable for discharge. Differential Diagnosis Differential Diagnoses: The differential diagnosis associated with the presentation includes as above. Admission/Observation not indicated. Independent Interpretation I performed an independent interpretation of an: Plain X-Ray and Ultrasound Interpretation: XR right shoulder 04/19/24 small calcification to superior labrum. no fracture. Venous duplex RUE without clot Radiology Impression Discussion of test interpretation with radiology: I have reviewed the rad iologist's reading. Radiologist Impression: Procedure(s): XR shoulder RT min 2V Accession Number(s): [id number] cc: Generic ED Physician; Physician,Unknown ~ CLINICAL HISTORY: pain no injury 3 view right shoulder Comparison: None Findings: Bones intact. No dislocations. No significant arthritic change. Tiny calcification in the superior labrum. No erosions. No radiopaque foreign body. IMPRESSION: 1. No acute findings This document has been electronically signed by: Crow Lemon MD on 04/19/2024 06:42:26 Procedure(s): US venous duplex UE RT Accession Number(s): [id number] cc: Sumeet Bergeron; Physician,Unknown ~ CLINICAL HISTORY: Right upper extremityu pain. DVT? Venous duplex ultrasound right upper extremity Comparison: None Findings: Accessible deep venous segments are fully compressible with normal Doppler color flow and spectral tracings. IMPRESSION: 1. Negative for right upper extremity deep vein thrombosis. This document has been electronically signed by: Car Christie MD on 04/30/2024 13:09:58 External Record Review External record reviewed: Inpatient record Prescription Management I considered prescription management with: Pain Medication Social Determinants Patient?s care significantly limited by Social Determinants of Health including: Other Social Determinant of Health Critical Care Time Critical Care Time Critical Care Time: No Discharge Plan Discharge Clinical Impression: Biceps tendinitis Patient Disposition: Home, Self-Care Instructions: Tendinitis (ED) Additional Instructions: The ultrasound of your right arm does not demonstrate any clots within your veins. The xray of your shoulder obtained 10 days ago shows findings consistent with tendonitis. This is also consistent with your physical exam. You were treated with an anti-inflammatory in ED today. As discussed, you will likely require physical therapy. Please follow up with your PCP or orthopedic doctor who can help facilitate this. You were provided with sling for comfort. As discussed, take your arm out of the sling and move the shoulder around multiple times a day to prevent frozen shoulder. I have sent an anti-inflammatory (naproxen) to your pharmacy. Take this as presc ribed for pain. Return with new or worsening symptoms. In the case of an emergency call 911. Prescriptions: New naproxen 500 mg tablet 500 mg PO Q12H PRN (Reason: pain (scale score 1-3)) Qty: 20 0RF No Action albuterol sulfate [ProAir HFA] 90 mcg/actuation HFA aerosol inhaler 2 puff inhalation Q4-6H PRN (Reason: shortness of breath or wheezing) Qty: 8.5 0RF albuterol sulfate 2.5 mg /3 mL (0.083 %) solution for nebulization 2.5 mg inhalation Q4-6H PRN (Reason: shortness of breath or wheezing) Qty: 180 0RF (DME) nebulizers Misc See Rx Instructions .Route Qty: 1 0RF Rx Instructions: As directed acetaminophen [Tylenol Extra Strength] 500 mg tablet 500 mg PO Q6H PRN (Reason: fever or pain) Qty: 14 0RF prednisone 20 mg tablet 20 mg PO DAILY 7 Days Qty: 7 0RF penicillin V potassium 500 mg tablet 500 mg PO BID 10 Days Qty: 20 0RF gabapentin 100 mg capsule 100 mg PO BID PRN (Reason: Numbness) Qty: 30 0RF cyclobenzaprine 10 mg tablet 10 mg PO TID PRN (Reason: muscle spasm) Qty: 20 0RF prednisone 20 mg tablet 40 mg PO DAILY 5 Days Qty: 10 0RF lidocaine 5 % adhesive patch,medicated 1 patch topical DAILY Qty: 30 0RF Rx Instructions: leave on most painful area for up to 12 hrs Referrals: [facility] [Provider Group] Stand Alone Forms: Work/School Release Interventions: ED Discharge Assessment Last Done: 04/30/24 14:08 Discharge Date/Time: 04/30/24 14:08 Print Language: Occitan
[2024-04-30] MEDS: Ketorolac Tromethamine 30 MG/ML VIAL IM (13:29)
[2024-04-30 14:08] VITALS: BP 132/85; PULSE 87; RESP 18; TEMP 36.9; O2SAT 96
== END 2024-04-30 14:08 | disposition home or self-care (01) ==
PROVIDERS: Emergency Provider Emergency Medicine
DX: M75.31 Calcific tendinitis of right shoulder (principal); R60.0 Localized edema; Z79.899 Other long term (current) drug therapy
CPT/HCPCS: 93971; 96372; 99283; 99284; J1885

== ENCOUNTER → 2024-04-30 11:15 | Outpatient (BNV) | payer MEDICAID, SELFPAY | PROVIDERS: Emergency Provider Emergency Medicine; Visit Provider Radiology Diagnostic Radiology | DX: M79.621 Pain in right upper arm (principal) | CPT/HCPCS: 93971 ==